=== PATIENT | female | born 1945 | race Caucasian/White ===

== ENCOUNTER 2016-08-24 11:05 | Outpatient (CLI) | payer MEDICARE | END 2016-08-24 11:06 | disposition home or self-care (01) | DX: E11.9 Type 2 diabetes mellitus without complications (principal); E78.5 Hyperlipidemia, unspecified; I10 Essential (primary) hypertension ==

== ENCOUNTER 2016-10-01 15:11 | Outpatient (CLI) | payer MEDICARE ==
[2016-10-01 18:11] LABS: BASOPHILS % (AUTO) 0.4 %; EOSINOPHILS # (AUTO) 0.6 10^3/uL (0.0-0.7); EOSINOPHILS % (AUTO) 5.5 %; HCT - HEMATOCRIT 40.3 % (37.0-47.0); HGB - HEMOGLOBIN 13.2 g/dL (12.0-16.0); LYMPHOCYTES # (AUTO) 3.4 10^3/uL (1.5-3.5); LYMPHOCYTES % (AUTO) 30.4 %; MEAN CORPUSCULAR HEMOGLOBIN 27.4 pg (27.0-31.0); MEAN CORPUSCULAR HGB CONC 32.7 g/dL (32.0-36.0); MEAN CORPUSCULAR VOLUME 83.7 fL (81.0-99.0); MEAN PLATELET VOLUME 9.4 fL (7.9-10.8); MONOCYTES # (AUTO) 0.9 10^3/uL (0.0-1.0); MONOCYTES % (AUTO) 8.5 %; NEUTROPHILS # (AUTO) 6.1 10^3/uL (1.5-6.6); NEUTROPHILS % (AUTO) 55.2 %; RED BLOOD COUNT 4.81 10^6/uL (4.20-5.40); RED CELL DISTRIBUTION WIDTH 14.4 % (12.0-15.0); UNCORRECTED WHITE BLOOD COUNT 11.1 x10^3/uL; WHITE BLOOD COUNT 11.1 x10^3/uL (4.8-10.8)
== END 2016-10-01 15:12 | disposition home or self-care (01) ==
LOC: LAB.F 15:11
PROVIDERS: ATTEND Family Medicine
DX: E55.9 Vitamin D deficiency, unspecified (principal); R53.83 Other fatigue; E11.9 Type 2 diabetes mellitus without complications; E78.5 Hyperlipidemia, unspecified; I10 Essential (primary) hypertension
CPT/HCPCS: 36415; 82306; 82607; 83735; 85025

== ENCOUNTER 2016-11-12 10:55 | Outpatient (CLI) | payer MEDICARE | END 2016-11-12 10:56 | disposition home or self-care (01) | LOC: NS 10:55 | PROVIDERS: ATTEND Family Medicine | DX: Z71.3 Dietary counseling and surveillance (principal); E11.9 Type 2 diabetes mellitus without complications; Z68.30 Body mass index [BMI] 30.0-30.9, adult | CPT/HCPCS: 97802 ==

== ENCOUNTER 2017-04-29 11:14 | Outpatient (CLI) | payer MEDICARE ==
[2017-04-29 17:57] LABS: ALBUMIN/GLOBULIN RATIO 1.8 (1.0-2.2); BILIRUBIN,TOTAL 0.7 mg/dL (0.2-1.0); BUN - BLOOD UREA NITROGEN 28 mg/dL (6-20); CALCIUM 9.5 mg/dL (8.5-10.3); CARBON DIOXIDE - CO2 26 mmol/L (21-32); CHLORIDE 100 mmol/L (101-111); CHOL/HDL RATIO 3.2 (<4.4); CHOLESTEROL 138 mg/dL; GFR - MDRD 54 (>89); GLUCOSE 123 mg/dL (70-100); HDL CHOLESTEROL 43 mg/dL; LDL/HDL RATIO 1.2 (<4.4); POTASSIUM 4.1 mmol/L (3.5-5.0); SODIUM 136 mmol/L (135-145); TOTAL PROTEIN 6.9 g/dL (6.7-8.2); TRIGLYCERIDES 213 mg/dL; VLDL CHOLESTEROL 43 mg/dL
[2017-04-29 18:06] LABS: HEMOGLOBIN A1C 0.55 g/dL
== END 2017-04-29 11:15 | disposition home or self-care (01) ==
LOC: LAB.F 11:14
PROVIDERS: ATTEND Family Medicine
DX: E11.9 Type 2 diabetes mellitus without complications (principal); E78.5 Hyperlipidemia, unspecified; I10 Essential (primary) hypertension; E55.9 Vitamin D deficiency, unspecified
CPT/HCPCS: 36415; 80053; 80061; 82043; 82306; 83036

== ENCOUNTER 2017-07-09 11:57 | Outpatient (CLI) | payer MEDICARE ==
[2017-07-09 12:29] LABS: CREATININE 1.1 mg/dL (0.4-1.0)
[2017-07-09] MEDS ORDERED: GADOBUTROL 7.5 MMOL/7.5 ML VIAL ONE (12:48)
[2017-07-09] MEDS ORDERED: GADOBUTROL 7.5 MMOL/7.5 ML VIAL IVP ONE (13:30)
--- NOTE | 2017-07-09 15:09 | MRI Report ---
EXAM: MRI BRAIN AND INTERNAL AUDITORY CANAL (IAC),WITHOUT AND WITH CONTRAST. EXAM DATE: 07/09/2017 01:57 PM. CLINICAL HISTORY: Dizziness. Sensorineural hearing loss bilaterally. COMPARISON: None. TECHNIQUE: Multiplanar, multisequence T1-weighted and fluid-sensitive MRI sequences of the brain and IACs were performed. Other: None. IV Contrast: Without an with 6.5 mm Gadavist. FINDINGS: Brain Volume: Normal for age. Parenchyma/Dura: No acute hemorrhage, mass, or acute infarct.White matter disease is mild and consist ent with aging and chronic microangiopathy. No abnormal enhancement. Internal Auditory Canals (IACs): Normal. No cranial nerve lesion or inflammatory process identified. The inner ear structure are symmetric and unremarkable. Ventricles/Cisterns: No hydrocephalus. No abnormal extra-axial fluid collection or hemorrhage. Sinuses: Moderately prominent patchy and confluent abnormal fluid opacity in the region of the right temporal bone, mastoids and possibly the middle ear cavity. Minimal amorphous left inferior mastoid f luid signal may also be present. No evidence for acute paranasal sinus disease. Bones: No focal pathologic appearing marrow signal changes in the skull or clivus. Other: The major arterial skull base flow voids are present. IMPRESSION: 1. No acute intracranial abnormality or enhancing mass. Mild chronic age-related changes. 2. Unremarkable findings in the regions of the internal auditory canals and cerebellopontine angle ci sterns. No evidence for vestibular schwannoma or other enhancing mass in this region. 3. Patchy and confluent abnormal right temporal bone airspace opacities raising the possibility of ri ght side otomastoiditis. [facility] Referring Provider Line: [phone] SITE ID: [id number]
== END 2017-07-09 11:58 | disposition home or self-care (01) ==
LOC: LAB 11:57
PROVIDERS: ATTEND Otolaryngology
DX: H90.42 Sensorineural hearing loss, unilateral, left ear, with unrestricted hearing on the contralateral side (principal); R42 Dizziness and giddiness
CPT/HCPCS: 36415; 70543; 82565; A9585

== ENCOUNTER 2017-08-02 11:08 | Outpatient (CLI) | payer MEDICARE ==
[2017-08-02 20:23] LABS: HB2 TOTAL 13.7 g/dL; HEMOGLOBIN A1C 0.69 g/dL; HEMOGLOBIN A1C % 6.8 % (4.6-6.2)
== END 2017-08-02 11:09 | disposition home or self-care (01) ==
LOC: LAB.F 11:08
PROVIDERS: ATTEND Family Medicine
DX: E55.9 Vitamin D deficiency, unspecified (principal); E11.9 Type 2 diabetes mellitus without complications; E78.5 Hyperlipidemia, unspecified; I10 Essential (primary) hypertension
CPT/HCPCS: 36415; 82306; 83036

== ENCOUNTER 2017-11-01 11:05 | Outpatient (CLI) | payer MEDICARE ==
[2017-11-01 18:38] LABS: CALCIUM 9.4 mg/dL (8.5-10.3); CREATININE 0.8 mg/dL (0.4-1.0)
[2017-11-01 19:09] LABS: HB2 TOTAL 13.5 g/dL; HEMOGLOBIN A1C 0.59 g/dL; HEMOGLOBIN A1C % 6.1 % (4.6-6.2)
== END 2017-11-01 11:06 | disposition home or self-care (01) ==
LOC: LAB.F 11:05
PROVIDERS: ATTEND Family Medicine
DX: R42 Dizziness and giddiness (principal); E11.9 Type 2 diabetes mellitus without complications; I10 Essential (primary) hypertension
CPT/HCPCS: 36415; 80048; 83036

== ENCOUNTER 2018-02-14 08:00 | Outpatient (CLI) | payer MEDICARE ==
[2018-02-14 18:40] LABS: BUN - BLOOD UREA NITROGEN 27 mg/dL (6-20); CALCIUM 8.8 mg/dL (8.5-10.3); CARBON DIOXIDE - CO2 22 mmol/L (21-32); CHLORIDE 102 mmol/L (101-111); CHOLESTEROL 140 mg/dL; GFR - MDRD 54 (>89); GLUCOSE 142 mg/dL (70-100); HDL CHOLESTEROL 46 mg/dL; LDL CHOLESTEROL,CALCULATED 51 mg/dL; LDL/HDL RATIO 1.1 (<4.4); SODIUM 135 mmol/L (135-145); VLDL CHOLESTEROL 43 mg/dL
[2018-02-14 19:16] LABS: HB2 TOTAL 12.3 g/dL; HEMOGLOBIN A1C 0.57 g/dL; HEMOGLOBIN A1C % 6.4 % (4.6-6.2)
== END 2018-02-14 08:01 | disposition home or self-care (01) ==
LOC: LAB.F 08:00
PROVIDERS: ATTEND Internal Medicine
DX: E11.9 Type 2 diabetes mellitus without complications (principal); E78.5 Hyperlipidemia, unspecified
CPT/HCPCS: 36415; 80048; 80061; 83036; 83721; 84443

== ENCOUNTER 2018-03-04 10:05 | Outpatient (CLI) | payer MEDICARE ==
--- NOTE | 2018-03-04 13:36 | DEXA Report ---
Reason: ASYMPTOMATIC MENOPAUSAL STATE Procedure Date: 03/04/2018 Accession Number: [id number] / [id number] Procedure: DEX - Dexa Spine and/or Hip CPT Code: FULL RESULT: EXAM: Dexa Spine and/or Hip DATE: 03/04/2018 10:37 AM CLINICAL HISTORY: ASYMPTOMATIC MENOPAUSAL STATE TECHNIQUE: Dual energy x-ray absorptiometry (DXA) was performed on a [employer] System. Regions measured are the AP Spine, femoral neck, and if needed forearm. COMPARISON: None. In accordance with the International Society for Clinical Densitometry (ISCD) guidelines, data from previous exams may be reanalyzed using current recommendations and techniques. This is done to allow a more accurate basis for comparison with the current study. FINDINGS: The data for the lumbar spine is as follows: BMD (g/cm/cm) T-SCORE Z-SCORE REGION L1 1.429 2.5 3.4 L2 1.496 2.5 3.4 L3 1.553 2.9 3.8 L4 1.672 3.9 4.8 TOTAL 1.551 3.1 4.0 NOTE: All evaluable vertebrae are used for classification The data for the hip is as follows: BMD (g/cm/cm) T-SCORE Z-SCORE REGION Neck 0.905 -1.0 0.4 TOTAL 0.953 -0.4 0.7 NOTE: The femoral neck or total proximal femur, whichever is lowest, is used for classification. IMPRESSION: THE WHO CLASSIFICATION BASED ON THE INTERNATIONAL REFERENCE STANDARD IS NORMAL. THE FRACTURE RISK IS NOT INCREASED. RECOMMENDATION: Patients with diagnosis of osteoporosis or osteopenia should have regular bone mineral density assessment. For those eligible for Medicare, routine testing is allowed once every 2 years. Testing frequency can be increased for patients who have rapidly progressing disease or for those who are receiving medical therapy to restore bone mass. COMMENT: World Health Organization (WHO) definitions for osteoporosis and osteopenia: NORMAL BMD: T-score at -1.0 or higher, fracture risk is low OSTEOPENIA BMD: T-score between -1.0 and -2.5, fracture risk is increased. OSTEOPOROSIS BMD: T-score at -2.5 or lower, fracture risk is high. National Osteoporosis Foundation recommends: 1. Obtain adequate dietary calcium (at least 1200 mg per day) and vitamin D (400-800 international units per day). 2. Participate, as appropriate, in regular weightbearing and muscle-strengthening exercise. 3. Avoid tobacco use and reduce alcohol and caffeine intake. 4. For more detailed information see the website at www.NOF.org.
== END 2018-03-04 10:06 | disposition home or self-care (01) ==
LOC: DI 10:05
PROVIDERS: ATTEND Internal Medicine
DX: Z78.0 Asymptomatic menopausal state (principal)
CPT/HCPCS: 77080

== ENCOUNTER 2018-06-18 17:20 | Outpatient (CLI) | payer MEDICARE | END 2018-06-18 17:21 | disposition home or self-care (01) | LOC: EMS 17:20 | PROVIDERS: ATTEND Surgery | DX: M54.6 Pain in thoracic spine (principal); R07.9 Chest pain, unspecified; R06.02 Shortness of breath | CPT/HCPCS: A0425; A0427 ==

== ENCOUNTER 2018-06-18 17:52 | Emergency (ER) | payer MEDICARE ==
[2018-06-18] MEDS ORDERED: LIDOCAINE VISCOUS 2% 15 ML UDC MM STA (18:11)
[2018-06-18] MEDS ORDERED: MAG HYDROX/AL HYDROX/SIMETH 30 ML UDC PO STA (18:11)
--- NOTE | 2018-06-18 18:13 | ED Physician Documentation ---
PD HPI CHEST PAIN - Stated complaint Stated Complaint: BACK PAIN - Chief complaint Chief Complaint: Back Pain - History obtained from History obtained from: Patient - History of Present Illness Timing - onset: Other (She has had high left flank/low thoracic back pain since yesterday that is just uncomfortable but today with radiation to the left upper quadrant associated with shortness of breath and some sweatiness. It does not change with exertion or deep breathing or rotation. There was no injury. She denies pedal edema or calf pain. She has no heart problems. Except for a known heart murmur.) Review of Systems Constitutional: denies: Fever, Chills Cardiac: denies: Chest pain / pressure, Palpitations Respiratory: reports: Dyspnea. denies: Cough GI: reports: Abdominal Pain (luq), Nausea. 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 HEENT: Cataracts, Tonsil/Adenoidectomy - Present Medications Home Medications: Ambulatory Orders Medication Instructions Recorded Confirmed Acetaminophen [Tylenol] 650 mg PO Q6H PRN 01/04/13 06/18/18 Aspirin [Aspir 81] 81 mg PO DAILY 01/04/13 06/18/18 Felodipine [Felodipine ER] 10 mg PO DAILY 01/04/13 06/18/18 Losartan [Cozaar] 50 mg PO BID 01/04/13 06/18/18 Metformin HCl [Metformin HCl ER] 1,000 mg PO BIDWM 01/04/13 06/18/18 RX: Furosemide 40 mg PO DAILY 01/04/13 06/18/18 Cholecalciferol (Vitamin D3) 2,000 unit PO DAILY 09/25/16 06/18/18 [Vitamin D] Cyanocobalamin (Vitamin B-12) 1,000 mcg PO DAILY 09/25/16 09/25/16 [Vitamin B-12] RX: Atorvastatin Calcium 40 mg PO DAILY 09/25/16 06/18/18 RX: Docusate Sodium 100 - 200 mg PO DAILY PRN 09/25/16 06/18/18 RX: Glimepiride 1 mg PO DAILY 09/25/16 06/18/18 RX: Meloxicam 15 mg PO DAILY 09/25/16 06/18/18 - Allergies Allergies/Adverse Reactions: Allergies Allergy/AdvReac Type Severity Reaction Status Date / Time codeine [Codeine] AdvReac Intermediate Nausea Verified 06/18/18 18:09 - Social History Smoking Status: Never smoker PD ED PE NORMAL - Vitals Vital signs reviewed: Yes - General General: Alert and oriented X 3, No acute distress - HEENT HEENT: PERRL, EOMI - Neck Neck: Supple, no meningeal sign, No bony TTP - Cardiac Cardiac: Other (1 out of 6 systolic decrescendo murmur) - Respiratory Respiratory: No respiratory distress, Clear bilaterally - Abdomen Abdomen: Normal bowel sounds, Soft, Non tender - Back Back: No CVA TTP, No spinal TTP - Derm Derm: Normal color, Warm and dry, No rash - Extremities Extremities: No edema, No calf tenderness / cord - Neuro Neuro: Alert and oriented X 3, Normal speech - Psych Psych: Normal mood, Normal affect Results - Vitals Vitals: Vital Signs - 24 hr 06/18/18 06/18/18 06/18/18 18:00 18:55 20:16 Temperature 36.0 C L 36.9 C Heart Rate 77 79 77 Respiratory 18 18 20 Rate Blood Pressure 144/70 H 147/82 H 148/76 H O2 Saturation 96 94 95 Oxygen O2 Source Room air - EKG (time done) 1818 Rate: Rate (enter#) (72) Rhythm: NSR [place]: Normal Intervals: Normal OK QRS: LVH Ischemia: Normal ST segments Computer interpretation: Agree with computer - Labs Labs: Laboratory Tests 06/18/18 06/18/18 06/18/18 18:37 18:37 18:37 WBC 8.9 RBC 4.02 L Hgb 11.0 L Hct 33.9 L MCV 84.3 MCH 27.5 MCHC 32.6 RDW 15.5 H Plt Count 337 MPV 8.5 Neut # (Auto) 5.6 Lymph # (Auto) 1.9 [place] # (Auto) 1.1 H Eos # (Auto) 0.3 Baso # (Auto) 0.1 Absolute Nucleated RBC 0.00 Nucleated RBC % 0.0 D-Dimer Sodium 138 Potassium 3.7 Chloride 105 Carbon Dioxide 22 Anion Gap 11.0 BUN 25 H Creatinine 1.0 Estimated GFR (MDRD) 54 L Glucose 181 H Calcium 8.3 L Total Bilirubin 0.4 AST 25 ALT 20 Alkaline Phosphatase 48 Troponin I < 0.04 Total Protein 6.7 Albumin 3.9 Globulin 2.8 Albumin/Globulin Ratio 1.4 Lipase 42 06/18/18 06/18/18 18:37 19:45 WBC RBC Hgb Hct MCV MCH MCHC RDW Plt Count MPV Neut # (Auto) Lymph # (Auto) [place] # (Auto) Eos # (Auto) Baso # (Auto) Absolute Nucleated RBC Nucleated RBC % D-Dimer 211.4 Sodium Potassium Chloride Carbon Dioxide Anion Gap BUN Creatinine Estimated GFR (MDRD) Glucose Calcium Total Bilirubin AST ALT Alkaline Phosphatase Troponin I < 0.04 Total Protein Albumin Globulin Albumin/Globulin Ratio Lipase PD MEDICAL DECISION MAKING - ED course ED course: She has had atypical chest and back pain of a days duration. She is not in extremis a dissection is unlikely and her d-dimer is negative. Serial troponins done in the department were negative. Departure - Departure Disposition: 01 Home, Self Care Clinical Impression: Back pain Condition: Good Record reviewed to determine appropriate education?: Yes Instructions: ED Abdominal Pain Unkn Cause Comments: Return for new or worsening symptoms. There is no evidence of heart issue tonight but we would like to see you again if symptoms change or worsen. Follow-up with your doctor and consider stress testing. Discharge Date/Time: 06/18/18 20:38
[2018-06-18 18:54] LABS: BASOPHILS # (AUTO) 0.1 10^3/uL (0.0-0.1); BASOPHILS % (AUTO) 1.2 %; EOSINOPHILS # (AUTO) 0.3 10^3/uL (0.0-0.7); EOSINOPHILS % (AUTO) 2.9 %; LYMPHOCYTES # (AUTO) 1.9 10^3/uL (1.5-3.5); LYMPHOCYTES % (AUTO) 21.1 %; MEAN CORPUSCULAR HEMOGLOBIN 27.5 pg (27.0-31.0); MEAN CORPUSCULAR HGB CONC 32.6 g/dL (32.0-36.0); MEAN CORPUSCULAR VOLUME 84.3 fL (81.0-99.0); MEAN PLATELET VOLUME 8.5 fL (7.9-10.8); MONOCYTES # (AUTO) 1.1 10^3/uL (0.0-1.0); MONOCYTES % (AUTO) 11.9 %; NEUTROPHILS # (AUTO) 5.6 10^3/uL (1.5-6.6); NEUTROPHILS % (AUTO) 62.9 %; PLT - PLATELET COUNT 337 10^3/uL (130-450); RED BLOOD COUNT 4.02 10^6/uL (4.20-5.40); RED CELL DISTRIBUTION WIDTH 15.5 % (12.0-15.0); WHITE BLOOD COUNT 8.9 x10^3/uL (4.8-10.8)
--- NOTE | 2018-06-18 19:05 | XRAY Report ---
Reason: chest pain Procedure Date: 06/18/2018 Accession Number: [id number] / [id number] Procedure: XR - Chest 2 View X-Ray CPT Code: 53928 FULL RESULT: EXAM: CHEST RADIOGRAPHY EXAM DATE: 06/18/2018 06:53 PM. CLINICAL HISTORY: Left-sided chest pain. COMPARISON: CHEST 2 VIEW PA/LAT 09/27/2013 11:15 AM. TECHNIQUE: 2 views. FINDINGS: Lungs/Pleura: Mild atelectatic changes seen at the left base, with trace effusion. Right lung is grossly clear. Mediastinum: Heart and mediastinal contours are unremarkable. Other: None. IMPRESSION: Mild atelectatic changes at the left base with trace effusion. [facility]
[2018-06-18 19:07] LABS: ALBUMIN 3.9 g/dL (3.2-5.5); ALBUMIN/GLOBULIN RATIO 1.4 (1.0-2.2); BILIRUBIN,TOTAL 0.4 mg/dL (0.2-1.0); CALCIUM 8.3 mg/dL (8.5-10.3); TOTAL PROTEIN 6.7 g/dL (6.7-8.2)
[2018-06-18 20:17] VITALS: BP 148/76
== END 2018-06-18 20:38 | disposition home or self-care (01) ==
LOC: EDUNIT# → ED 17:52
DX: M54.9 Dorsalgia, unspecified (principal); R07.89 Other chest pain; E11.9 Type 2 diabetes mellitus without complications; I10 Essential (primary) hypertension; E78.00 Pure hypercholesterolemia, unspecified
CPT/HCPCS: 36415; 71046; 80053; 83690; 84484; 85025; 85379; 93005; 99283; 99284; A9270

== ENCOUNTER 2018-06-22 08:00 | Outpatient (CLI) | payer MEDICARE ==
[2018-06-22 17:48] LABS: BASOPHILS # (AUTO) 0.1 10^3/uL (0.0-0.1); BASOPHILS % (AUTO) 1.2 %; EOSINOPHILS # (AUTO) 0.3 10^3/uL (0.0-0.7); EOSINOPHILS % (AUTO) 2.5 %; HGB - HEMOGLOBIN 11.2 g/dL (12.0-16.0); LYMPHOCYTES % (AUTO) 28.8 %; MEAN CORPUSCULAR HEMOGLOBIN 27.1 pg (27.0-31.0); MEAN CORPUSCULAR VOLUME 82.2 fL (81.0-99.0); MEAN PLATELET VOLUME 8.6 fL (7.9-10.8); MONOCYTES # (AUTO) 1.4 10^3/uL (0.0-1.0); MONOCYTES % (AUTO) 13.5 %; NEUTROPHILS # (AUTO) 5.7 10^3/uL (1.5-6.6); PLT - PLATELET COUNT 412 10^3/uL (130-450); RED BLOOD COUNT 4.12 10^6/uL (4.20-5.40); RED CELL DISTRIBUTION WIDTH 15.4 % (12.0-15.0); WHITE BLOOD COUNT 10.5 x10^3/uL (4.8-10.8)
== END 2018-06-22 23:59 | disposition home or self-care (01) ==
LOC: LAB.F 08:00
PROVIDERS: ATTEND Otolaryngology Otology & Neurotology
DX: H90.3 Sensorineural hearing loss, bilateral (principal)
CPT/HCPCS: 36415; 85025; 85651

== ENCOUNTER 2018-08-01 11:38 | Outpatient (CLI) | payer MEDICARE ==
[2018-08-01] MEDS ORDERED: GADOBUTROL 10 MMOL/10 ML VIAL ONE (13:11)
[2018-08-01] MEDS ORDERED: GADOBUTROL 7.5 MMOL/7.5 ML VIAL ONE (14:26)
[2018-08-01] MEDS ORDERED: GADOBUTROL 10 MMOL/10 ML VIAL IVP ONE ×2 (14:31)
--- NOTE | 2018-08-01 17:21 | MRI Report ---
Reason: SUDDEN HEARING LOSS,RIGHT Procedure Date: 08/01/2018 Accession Number: [id number] / [id number] Procedure: MRI - Brain W/WO CPT Code: FULL RESULT: EXAM: MRI BRAIN WITHOUT AND WITH CONTRAST EXAM DATE: 08/01/2018 02:44 PM. CLINICAL HISTORY: Sudden hearing loss, right. COMPARISON: Images only were provided from MRI of the IACs without and with contrast 07/09/2017. TECHNIQUE: Multiplanar, multisequence T1-weighted and fluid-sensitive MR sequences of the brain were performed. Sequences optimized for routine evaluation. Other: None. IV Contrast: 9 mL Gadavist. FINDINGS: The diffusion-weighted images are normal. There is no evidence of acute or subacute cerebral infarction. The FLAIR images demonstrate multiple unchanged punctate T2 hyperintensities within the subcortical, deep, and periventricular white matter. This is consistent with a mild degree of chronic small vessel ischemia. The T2* sequence is normal. There is no evidence of subacute or chronic hemorrhage. The corpus callosum is of normal size and configuration. The pituitary and sella are normal. The craniocervical junction is normal. There is fluid intensity again demonstrated within multiple right mastoid air cells. This may reflect changes secondary to chronic eustachian tube dysfunction. There is a normal appearance of the nerve exit zone, cisternal and internal auditory canal segments of the bilateral 7th and 8th cranial nerves. There is a normal appearance of the nerve exit zone and cisternal segments of the bilateral trigeminal nerve and Meckel's cave. There are normal bony caps demonstrated over the bilateral superior semicircular canals. There is no evidence of dehiscence. There is no enhancing cerebellopontine angle mass or internal auditory canal mass. There is an unchanged small area of enhancement demonstrated within the right mastoid segment of the right temporal bone within this area of fluid intensity. It measures 6 x 7 mm on (29, 7447). The differential diagnosis would include an interosseous hemangioma versus a small area of neoplasia versus possibly granulation tissue. Further evaluation with a CT temporal bones without contrast may be useful and can be obtained as seen clinically appropriate. There has been one year of stability of this finding. IMPRESSION: 1. There is no evidence of acute or subacute cerebral infarction. 2. There is mild degree of chronic small vessel ischemia and mild degree of generalized volume loss. 3. There is a normal appearance of the course of the bilateral 7th and 8th cranial nerves. There is no evidence of semicircular canal dehiscence or enhancing internal auditory canal mass. 4. There is an enhancing lesion that is unchanged measuring 6 x 7 mm within the right mastoid segment of the right temporal bone. This is surrounded by an area of fluid intensity. It could represent an intraosseous hemangioma versus small area of neoplasia versus possible granulation tissue. There has been one year of stability of this finding. Further characterization can be obtained with CT of the temporal bones without contrast as deemed clinically appropriate.
== END 2018-08-01 11:39 | disposition home or self-care (01) ==
LOC: LAB 11:38 → DI 11:39
PROVIDERS: ATTEND Internal Medicine
DX: H91.21 Sudden idiopathic hearing loss, right ear (principal); I67.82 Cerebral ischemia; M89.9 Disorder of bone, unspecified
CPT/HCPCS: 36415; 70553; 82565; A9585

== ENCOUNTER 2018-08-31 15:03 | Outpatient (CLI) | payer MEDICARE ==
--- NOTE | 2018-09-01 08:36 | Mammography Report ---
Reason: SCREENING MAMMO Procedure Date: 08/31/2018 Accession Number: [id number] / [id number] Procedure: [facility]I - Screening Mammo w/Frank CPT Code: FULL RESULT: EXAM: Screening Mammo w/Frank DATE: 08/31/2018 3:35 PM CLINICAL HISTORY: Screening encounter. 10 years of estrogen therapy. TECHNIQUE: (B) - Bilateral CC and MLO views were obtained. A right laterally exaggerated CC view was obtained. COMPARISON: 04/20/2016 through 05/19/2013. PARENCHYMAL PATTERN: (D) - The breast(s) demonstrate(s) heterogeneously dense fibroglandular parenchyma. FINDINGS: There are coarse typically benign calcifications. There are no suspicious masses, calcifications, or areas of distortion. IMPRESSION: Benign findings. BI-RADS category 2. RECOMMENDATION: (ANNUAL) - Recommend routine annual screening mammography. BI-RADS CATEGORY: (2) - Benign Findings. STANDARD QUALIFYING STATEMENTS: 1. This examination was not reviewed with the aid of Computer-Aided Detection (CAD). 2. A negative or benign imaging report should not preclude biopsy if clinically suspicious findings are present. 3. Dense breasts may obscure an underlying neoplasm. 4. This examination was reviewed with the aid of 3D breast imaging (tomosynthesis).
== END 2018-08-31 15:04 | disposition home or self-care (01) ==
LOC: DI 15:03
DX: Z12.31 Encounter for screening mammogram for malignant neoplasm of breast (principal)
CPT/HCPCS: 77063; 77067

== ENCOUNTER 2018-09-13 11:06 | Outpatient (CLI) | payer MEDICARE ==
[2018-09-13 17:43] LABS: CREATININE 0.9 mg/dL (0.4-1.0)
[2018-09-13 18:10] LABS: HB2 TOTAL 11.9 g/dL; HEMOGLOBIN A1C 0.58 g/dL; HEMOGLOBIN A1C % 6.6 % (4.6-6.2)
== END 2018-09-13 11:07 | disposition home or self-care (01) ==
LOC: LAB.F 11:06
PROVIDERS: ATTEND Internal Medicine
DX: E11.9 Type 2 diabetes mellitus without complications (principal); R10.12 Left upper quadrant pain; M54.6 Pain in thoracic spine
CPT/HCPCS: 36415; 80048; 82043; 82150; 83036

== ENCOUNTER 2018-11-07 21:01 | Outpatient (CLI) | payer MEDICARE | END 2018-11-07 21:02 | disposition critical access hospital (66) | LOC: EMS 21:01 | PROVIDERS: ATTEND Surgery | DX: M25.511 Pain in right shoulder (principal); M79.621 Pain in right upper arm; W10.8XXA Fall (on) (from) other stairs and steps, initial encounter; Y92.008 Other place in unspecified non-institutional (private) residence as the place of occurrence of the external cause | CPT/HCPCS: A0425; A0427 ==

== ENCOUNTER 2018-11-07 21:29 | Emergency (ER) | payer MEDICARE ==
--- NOTE | 2018-11-07 21:40 | ED Physician Documentation ---
PD HPI UPPER EXT INJURY - Stated complaint Stated Complaint: GLF - History obtained from History obtained from: Patient - History of Present Illness Location: Right, Shoulder Type of injury: Fall (she was walking out on deck steps and tripped, falling onto right shoulder. Denies injury to head, neck, chest, abd.) Where injury occurred: Home Timing - onset: How many hours ago (1), Today Timing - duration: Hours (1) Timing - details: Abrupt onset, Still present Worsened by: Moving, Palpating Associated symptoms: No: Weakness, Numbness Contributing factors: No: Anticoagulated Similar symptoms before: Has not had sx before Recently seen: Not recently seen Review of Systems Cardiac: denies: Chest pain / pressure GI: denies: Abdominal Pain Skin: denies: Abrasion (s), Laceration (s) Musculoskeletal: denies: Neck pain, Back pain Neurologic: denies: Focal weakness, Numbness, Altered mental status, Head injury PD PAST MEDICAL HISTORY - Past Medical History Cardiovascular: Hypertension, High cholesterol Respiratory: None Endocrine/Autoimmune: Type 2 diabetes GI: None : None HEENT: Chronic hearing loss Psych: Depression Musculoskeletal: Osteoarthritis, Chronic back pain Derm: None - Past Surgical History Past Surgical History: Yes General: Colonoscopy 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 HEENT: Cataracts, Tonsil/Adenoidectomy - Present Medications Home Medications: Ambulatory Orders Medication Instructions Recorded Confirmed Acetaminophen [Tylenol] 650 mg PO Q6H PRN 01/04/13 06/18/18 Aspirin [Aspir 81] 81 mg PO DAILY 01/04/13 06/18/18 Felodipine [Felodipine ER] 10 mg PO DAILY 01/04/13 06/18/18 Furosemide 40 mg PO DAILY 01/04/13 06/18/18 Losartan [Cozaar] 50 mg PO BID 01/04/13 06/18/18 Metformin HCl [Metformin HCl ER] 1,000 mg PO BIDWM 01/04/13 06/18/18 Atorvastatin Calcium 40 mg PO DAILY 09/25/16 06/18/18 Cholecalciferol (Vitamin D3) 2,000 unit PO DAILY 09/25/16 06/18/18 [Vitamin D] Cyanocobalamin (Vitamin B-12) 1,000 mcg PO DAILY 09/25/16 09/25/16 [Vitamin B-12] Docusate Sodium 100 - 200 mg PO DAILY PRN 09/25/16 06/18/18 Glimepiride 1 mg PO DAILY 09/25/16 06/18/18 Meloxicam 15 mg PO DAILY 09/25/16 06/18/18 Naproxen 500 mg PO BID #20 tablet 11/07/18 Tramadol HCl 50 mg PO Q6H PRN #15 tablet 11/07/18 - Allergies Allergies/Adverse Reactions: Allergies Allergy/AdvReac Type Severity Reaction Status Date / Time codeine [Codeine] AdvReac Intermediate Nausea Verified 11/07/18 21:39 - Social History Does the pt smoke?: No Smoking Status: Never smoker Does the pt drink ETOH?: No Does the pt have substance abuse?: No PD ED PE NORMAL - Vitals Vital signs reviewed: Yes - General General: Alert and oriented X 3, Well developed/nourished, Other (holding right shoulder/arm guardedly to side. Seems defect under AC area c/w dislocation. ) - Neck Neck: Supple, no meningeal sign, No bony TTP, No adenopathy - Respiratory Respiratory: Clear bilaterally, Other (no chestwall tenderness) - Abdomen Abdomen: Soft, Non tender - Derm Derm: Normal color, Warm and dry - Extremities Extremities: Other (right shoulder tender and deformity c/w dislocation. ) - Neuro Neuro: Alert and oriented X 3, No motor deficit, No sensory deficit, Normal speech Results - Vitals Vitals: Vital Signs - 24 hr 11/07/18 11/07/18 11/07/18 21:37 22:30 22:46 Temperature 36.7 C 36.5 C Heart Rate 72 73 71 Respiratory 14 14 12 Rate Blood Pressure 170/75 H 159/79 H 155/90 H O2 Saturation 94 96 94 11/07/18 11/07/18 11/07/18 22:50 22:57 23:01 Temperature Heart Rate 76 71 67 Respiratory 16 15 17 Rate Blood Pressure 136/75 H 144/81 H O2 Saturation 96 92 11/07/18 23:33 Temperature Heart Rate 72 Respiratory 15 Rate Blood Pressure 159/76 H O2 Saturation 97 Oxygen O2 Source Room air - Rads (name of study) right shoulder Radiology: Prelim report reviewed (anterior dislocation with Hill Sachs impaction), EMP read contemporaneously, See rad report post reduction Radiology: Prelim report reviewed, EMP read contemporaneously (improved location), See rad report Procedures - Reduction Body part reduced: Right, Shoulder Fracture or dislocation: Dislocation Anesthesia: Conscious sedation, Morphine Shoulder reduction technique: [place] / ext rotation Reduction aftercare: NV intact, Xray confirms reduction, Alignment improved, Sling, Patient tolerated well PD MEDICAL DECISION MAKING - ED course Complexity details: considered differential (given IV med for pain but not able to tolerate manipulation due to pain, so discussed and did sedation for the procedure. Tolerated well with good reduction. ), d/w patient Departure - Departure Disposition: 01 Home, Self Care Clinical Impression: Fall from slip, trip, or stumble Qualifiers: Encounter type: initial encounter Qualified Code(s): W01.0XXA - Fall on same level from slipping, tripping and stumbling without subsequent striking against object, initial encounter Anterior shoulder dislocation Qualifiers: Encounter type: initial encounter Laterality: right Qualified Code(s): S43.014A - Anterior dislocation of right humerus, initial encounter Condition: Stable Record reviewed to determine appropriate education?: Yes Instructions: ED Dislocation Shoulder Redu Follow-Up: Golden Tamez MD [Primary Care Provider] - Lance Owens MD [Provider Admit Priv/Credential] - Prescriptions: Naproxen 500 mg PO BID #20 tablet Tramadol HCl 50 mg PO Q6H PRN #15 tablet PRN Reason: Pain Comments: Use a sling to protect shoulder motion and allow healing of the shoulder ligaments. You would have to tear some of the shoulder ligaments and tendons in order to dislocate the shoulder and these need time to heal. Gentle range of motion of the shoulder is okay. In particular no reaching overhead, push pole, lifting with the arm. Wear the sling most of the time. Follow-up with orthopedics in about a week to see how well it is healing. Sometimes the rotator cuff does not heal adequately and needs subsequent fixing. The shoulder will be sore of course for the next few days at least in commonly about a week or 2. He has some anti-inflammatories such as naproxen or ibuprofen twice daily with food. Add Tylenol or even tramadol if needed for pain. Discharge Date/Time: 11/07/18 23:44
[2018-11-07] MEDS ORDERED: MORPHINE 10 MG/ML VIAL IVP STA (21:53)
[2018-11-07] MEDS ORDERED: ONDANSETRON 4 MG/2 ML VIAL IVP STA (21:53)
[2018-11-07] MEDS ORDERED: KETOROLAC 30 MG/ML VIAL IVP STA (21:53)
[2018-11-07] MEDS ORDERED: MORPHINE 2 MG/ML CARPUJECT IVP STA (22:22)
[2018-11-07] MEDS ORDERED: PROPOFOL 200 MG/20 ML VIAL IVP STA (22:22)
--- NOTE | 2018-11-07 22:59 | XRAY Report ---
Reason: fall, pain Procedure Date: 11/07/2018 Accession Number: [id number] / [id number] Procedure: XR - Humerus RT CPT Code: FULL RESULT: EXAM: RIGHT HUMERUS RADIOGRAPHY EXAM DATE: 11/07/2018 10:23 PM. CLINICAL HISTORY: Fall, pain. COMPARISON: - - - - - 04/06/2017 10:55 AM. TECHNIQUE: 2 views. FINDINGS: Bones: Normal. No fractures or bone lesions. Joints: Anterior shoulder dislocation. Degenerative changes of the acromioclavicular joint. Soft Tissues: Normal. No soft tissue swelling. IMPRESSION: Anterior shoulder dislocation. [facility]
--- NOTE | 2018-11-07 23:28 | XRAY Report ---
Reason: post reduction Procedure Date: 11/07/2018 Accession Number: [id number] / [id number] Procedure: XR - Shoulder 2 View RT CPT Code: FULL RESULT: EXAM: RIGHT SHOULDER RADIOGRAPHY EXAM DATE: 11/07/2018 10:58 PM. CLINICAL HISTORY: Post reduction. COMPARISON: None. TECHNIQUE: 2 views. FINDINGS: Bones: Hill-Sachs deformity in the lateral humeral head, with small adjacent osseous fragments. Joints: Degenerative changes. Soft tissues: The visualized hemithorax is unremarkable. No soft tissue swelling. IMPRESSION: Hill-Sachs fracture of the humeral head. Reduction of dislocation. [facility]
[2018-11-07 23:34] VITALS: BP 159/76
== END 2018-11-07 23:44 | disposition home or self-care (01) ==
LOC: EDUNIT# → ED 21:29
DX: S43.014A Anterior dislocation of right humerus, initial encounter (principal); S51.011A Laceration without foreign body of right elbow, initial encounter; W10.8XXA Fall (on) (from) other stairs and steps, initial encounter; Y93.01 Activity, walking, marching and hiking; Y92.008 Other place in unspecified non-institutional (private) residence as the place of occurrence of the external cause; I10 Essential (primary) hypertension; E11.9 Type 2 diabetes mellitus without complications; Z79.84 Long term (current) use of oral hypoglycemic drugs; Z79.82 Long term (current) use of aspirin
CPT/HCPCS: 23650; 94770; 96374; 96375; 99283; 99284

== ENCOUNTER 2018-11-18 13:17 | Outpatient (CLI) | payer MEDICARE ==
--- NOTE | 2018-11-18 15:05 | MRI Report ---
Reason: ANTERIOR DISLOCATION OF RIGHT HUMERUS,INITIAL ENCO Procedure Date: 11/18/2018 Accession Number: [id number] / [id number] Procedure: MRI - Upper Arm/Humerus RT W/O CPT Code: FULL RESULT: EXAM: RIGHT SHOULDER MRI WITHOUT CONTRAST EXAM DATE: 11/18/2018 02:45 PM. CLINICAL HISTORY: Anterior dislocation of right humerus, initial encounter. COMPARISON: Radiographs 11/07/2018. TECHNIQUE: Multiplanar, multisequence T1-weighted and fluid-sensitive sequences of the shoulder without contrast. Other: None. FINDINGS: Evaluation mildly limited by patient motion and artifact. Acromioclavicular Region: The acromion is type II with mild anterior downsloping. Moderate degenerative change at the acromioclavicular joint with subchondral cysts, bone marrow edema, and inferiorly directed osteophytes. The coracoacromial and coracoclavicular ligaments are intact. Moderate subacromial/subdeltoid bursal fluid. Glenohumeral Region: Minimal superior subluxation of the humeral head. Moderate joint effusion. Diffuse shallow partial-thickness cartilage loss. Edema and distortion of the anterior joint capsule including anterior inferior glenohumeral ligament. Bone Marrow: Mild impaction fracture posterolateral aspect humeral head involving a region measuring 1.9 cm AP by 1.9 cm craniocaudal and at least 0.4 cm in depth. Subtle bone marrow edema at the anterior inferior glenoid. Evaluation for subtle ossific fragment limited on MRI. Labrum: Limited evaluation due to motion and artifact. Degenerative fraying throughout. Deep partial to full-thickness tear anterior inferior aspect with subtle curvilinear displaced fragments extending inferiorly. Musculature/Rotator Cuff: Moderate supraspinatus tendinopathy with full-thickness partial-width tear distal aspect anterior and central fibers measuring 0.9 x 1.0 cm, AP by transverse. Deep partial-thickness articular surface tearing extends into the posterior fibers measuring 3 cm transverse. Mild infraspinatus tendinopathy with subtle shallow partial thickness intrasubstance tearing at the posterior insertion. Teres minor tendon intact. Moderate subscapularis tendinopathy with full-thickness partial width tear through the superior third of the fibers. Defect measures approximately 0.7 cm craniocaudal. Mild fatty streaking supraspinatus and subscapularis muscles with edema. Mild edema along the deep aspect deltoid muscle. Biceps Tendon: Moderate biceps tendinopathy with medial dislocation from the superior aspect of the groove and into the subscapularis tear. Likely intrasubstance tearing at the junction of the intra-articular and extra-articular portions. Other: The subcutaneous tissues are unremarkable. IMPRESSION: 1. Impaction fracture posterolateral humeral head and bone contusion versus subtle impaction fracture anterior-inferior glenoid, consistent with anterior dislocation injury. 2. Deep partial to full-thickness tear anterior inferior labrum with displaced labral fragments. 3. Full-thickness partial width tear supraspinatus tendon. Deep partial thickness articular surface tear extends into the posterior fibers. 4. Mild infraspinatus tendinopathy with subtle shallow intrasubstance tearing. 5. Full-thickness partial width tear subscapularis tendon. 6. Moderate biceps tendinopathy and intrasubstance tearing with medial dislocation from the groove and into the region of subscapularis tear. 7. Moderate glenohumeral joint effusion. 8. Moderate subacromial subdeltoid bursitis. 9. Moderate acromioclavicular degenerative change. RADIA
== END 2018-11-18 13:18 | disposition home or self-care (01) ==
LOC: DI 13:17
PROVIDERS: ATTEND Orthopaedic Surgery Sports Medicine
DX: S43.014A Anterior dislocation of right humerus, initial encounter (principal); M75.101 Unspecified rotator cuff tear or rupture of right shoulder, not specified as traumatic; S43.491A Other sprain of right shoulder joint, initial encounter; M25.411 Effusion, right shoulder; M19.011 Primary osteoarthritis, right shoulder; M75.51 Bursitis of right shoulder; M75.81 Other shoulder lesions, right shoulder

== ENCOUNTER 2018-12-22 | Outpatient (CLI) | payer MEDICARE | END 2018-12-22 11:35 | disposition home or self-care (01) | DX: E78.5 Hyperlipidemia, unspecified (principal); E11.9 Type 2 diabetes mellitus without complications; I10 Essential (primary) hypertension; F41.8 Other specified anxiety disorders | CPT/HCPCS: 36415; 80053; 80061; 83036; 83721; 84443; 85025 ==

== ENCOUNTER 2019-03-02 12:25 | Outpatient (CLI) | payer MEDICARE ==
--- NOTE | 2019-03-03 16:20 | XRAY Report ---
Reason: MIDBACK/MIDLINE PAIN,TTP Procedure Date: 03/02/2019 Accession Number: [id number] / [id number] Procedure: XR - Thoracic Spine 2 View CPT Code: FULL RESULT: EXAM: THORACIC SPINE RADIOGRAPHY EXAM DATE: 03/02/2019 12:38 PM. CLINICAL HISTORY: MIDBACK/MIDLINE PAIN,TTP. COMPARISON: None. TECHNIQUE: 2 views. FINDINGS: Alignment: Dextroscoliosis lower T-spine. Bones: No fractures or bone lesions. Disks: Scattered osteophytes diffusely. Soft Tissues: Normal. The visualized lungs and cardiomediastinal silhouette are normal. IMPRESSION: Mild DJD RADIA
== END 2019-03-02 12:26 | disposition home or self-care (01) ==
LOC: DI 12:25
PROVIDERS: ATTEND Family Medicine
DX: M47.814 Spondylosis without myelopathy or radiculopathy, thoracic region (principal)
CPT/HCPCS: 72070

== ENCOUNTER 2019-04-18 12:19 | Outpatient (CLI) | payer MEDICARE ==
[2019-04-18 17:10] LABS: BASOPHILS # (AUTO) 0.1 10^3/uL (0.0-0.1); BASOPHILS % (AUTO) 1.7 %; EOSINOPHILS # (AUTO) 0.6 10^3/uL (0.0-0.7); EOSINOPHILS % (AUTO) 6.6 %; HGB - HEMOGLOBIN 10.2 g/dL (12.0-16.0); LYMPHOCYTES # (AUTO) 2.3 10^3/uL (1.5-3.5); LYMPHOCYTES % (AUTO) 27.8 %; MEAN CORPUSCULAR HEMOGLOBIN 26.2 pg (27.0-31.0); MEAN CORPUSCULAR HGB CONC 31.7 g/dL (32.0-36.0); MEAN CORPUSCULAR VOLUME 82.6 fL (81.0-99.0); MEAN PLATELET VOLUME 10.7 fL (7.9-10.8); MONOCYTES # (AUTO) 0.7 10^3/uL (0.0-1.0); MONOCYTES % (AUTO) 8.6 %; NEUTROPHILS # (AUTO) 4.6 10^3/uL (1.5-6.6); NEUTROPHILS % (AUTO) 54.8 %; PLT - PLATELET COUNT 433 10^3/uL (130-450); RED CELL DISTRIBUTION WIDTH 13.8 % (12.0-15.0); WHITE BLOOD COUNT 8.4 x10^3/uL (4.8-10.8)
[2019-04-18 17:25] LABS: ALBUMIN 4.6 g/dL (3.2-5.5); ALBUMIN/GLOBULIN RATIO 1.6 (1.0-2.2); BILIRUBIN,TOTAL 0.6 mg/dL (0.2-1.0); CALCIUM 8.9 mg/dL (8.5-10.3); CREATININE 1.1 mg/dL (0.4-1.0); CRP HIGH SENSITIVITY 4.2 mg/L; TOTAL PROTEIN 7.5 g/dL (6.7-8.2)
[2019-04-18 17:32] LABS: HEMOGLOBIN A1C 0.52 g/dL; HEMOGLOBIN A1C % 6.9 % (4.6-6.2)
[2019-04-18 17:43] LABS: THYROID STIMULATING HORMONE 2.66 uIU/mL (0.34-5.60)
[2019-04-18 17:45] LABS: FREE T4 (FREE THYROXINE) 1.09 ng/dL (0.58-1.64)
[2019-04-18 17:50] LABS: FERRITIN 7.9 ng/mL (11.0-306.8); TOTAL T3 0.86 ng/mL (0.87-1.78)
[2019-04-19 11:22] LABS: HOMOCYSTEINE 13.6 umol/L (<10.4)
== END 2019-04-18 23:59 | disposition home or self-care (01) ==
LOC: LAB.S 12:19
PROVIDERS: ATTEND Family Medicine
DX: D64.9 Anemia, unspecified (principal); E55.9 Vitamin D deficiency, unspecified; R53.83 Other fatigue; E11.22 Type 2 diabetes mellitus with diabetic chronic kidney disease; N18.9 Chronic kidney disease, unspecified; D63.8 Anemia in other chronic diseases classified elsewhere; E03.9 Hypothyroidism, unspecified; M19.90 Unspecified osteoarthritis, unspecified site
CPT/HCPCS: 36415; 80053; 82306; 82626; 82728; 83036; 83090; 84439; 84443; 84480; 84481; 85025; 86141

== ENCOUNTER 2019-05-02 08:00 | Outpatient (CLI) | payer MEDICARE ==
[2019-05-02 17:15] LABS: BASOPHILS # (AUTO) 0.1 10^3/uL (0.0-0.1); BASOPHILS % (AUTO) 1.2 %; EOSINOPHILS # (AUTO) 0.4 10^3/uL (0.0-0.7); EOSINOPHILS % (AUTO) 3.8 %; HGB - HEMOGLOBIN 10.7 g/dL (12.0-16.0); LYMPHOCYTES # (AUTO) 2.9 10^3/uL (1.5-3.5); LYMPHOCYTES % (AUTO) 28.4 %; MEAN CORPUSCULAR HEMOGLOBIN 25.4 pg (27.0-31.0); MEAN CORPUSCULAR HGB CONC 30.6 g/dL (32.0-36.0); MEAN CORPUSCULAR VOLUME 82.9 fL (81.0-99.0); MEAN PLATELET VOLUME 10.8 fL (7.9-10.8); MONOCYTES % (AUTO) 9.8 %; NEUTROPHILS # (AUTO) 5.7 10^3/uL (1.5-6.6); NEUTROPHILS % (AUTO) 56.4 %; PLT - PLATELET COUNT 483 10^3/uL (130-450); RED BLOOD COUNT 4.22 10^6/uL (4.20-5.40); RED CELL DISTRIBUTION WIDTH 14.4 % (12.0-15.0)
[2019-05-02 18:11] LABS: ALBUMIN 4.5 g/dL (3.2-5.5); ALBUMIN/GLOBULIN RATIO 1.6 (1.0-2.2); BILIRUBIN,TOTAL 1.4 mg/dL (0.2-1.0); CALCIUM 9.2 mg/dL (8.5-10.3); TOTAL PROTEIN 7.4 g/dL (6.7-8.2)
== END 2019-05-02 23:59 | disposition home or self-care (01) ==
LOC: LAB.S 08:00
PROVIDERS: ATTEND Family Medicine
DX: N18.9 Chronic kidney disease, unspecified (principal); D63.1 Anemia in chronic kidney disease
CPT/HCPCS: 36415; 80053; 85025

== ENCOUNTER 2019-07-12 13:40 | Outpatient (CLI) | payer MEDICARE ==
[2019-07-12 17:25] LABS: BASOPHILS # (AUTO) 0.1 10^3/uL (0.0-0.1); BASOPHILS % (AUTO) 1.2 %; EOSINOPHILS # (AUTO) 0.4 10^3/uL (0.0-0.7); EOSINOPHILS % (AUTO) 4.6 %; HGB - HEMOGLOBIN 12.7 g/dL (12.0-16.0); LYMPHOCYTES # (AUTO) 2.6 10^3/uL (1.5-3.5); LYMPHOCYTES % (AUTO) 27.6 %; MEAN CORPUSCULAR HEMOGLOBIN 26.1 pg (27.0-31.0); MEAN CORPUSCULAR HGB CONC 31.7 g/dL (32.0-36.0); MEAN CORPUSCULAR VOLUME 82.5 fL (81.0-99.0); MEAN PLATELET VOLUME 10.6 fL (7.9-10.8); MONOCYTES # (AUTO) 0.8 10^3/uL (0.0-1.0); MONOCYTES % (AUTO) 8.1 %; NEUTROPHILS # (AUTO) 5.4 10^3/uL (1.5-6.6); NEUTROPHILS % (AUTO) 58.1 %; PLT - PLATELET COUNT 390 10^3/uL (130-450); RED BLOOD COUNT 4.86 10^6/uL (4.20-5.40); RED CELL DISTRIBUTION WIDTH 16.7 % (12.0-15.0); WHITE BLOOD COUNT 9.4 x10^3/uL (4.8-10.8)
[2019-07-12 17:38] LABS: HEMOGLOBIN A1C 0.61 g/dL; HEMOGLOBIN A1C % 6.4 % (4.6-6.2)
[2019-07-12 17:53] LABS: ALBUMIN 4.4 g/dL (3.2-5.5); ALBUMIN/GLOBULIN RATIO 1.5 (1.0-2.2); BILIRUBIN,TOTAL 0.4 mg/dL (0.2-1.0); CALCIUM 9.6 mg/dL (8.5-10.3); TOTAL PROTEIN 7.4 g/dL (6.7-8.2)
[2019-07-12 17:58] LABS: FERRITIN 16.4 ng/mL (11.0-306.8)
[2019-07-12 18:02] LABS: FOLATE 13.23 ng/mL (5.90 - >24.8)
== END 2019-07-12 13:41 | disposition home or self-care (01) ==
LOC: LAB.S 13:40
PROVIDERS: ATTEND Family Medicine
DX: R79.89 Other specified abnormal findings of blood chemistry (principal); N18.9 Chronic kidney disease, unspecified; D63.1 Anemia in chronic kidney disease; E11.22 Type 2 diabetes mellitus with diabetic chronic kidney disease
CPT/HCPCS: 36415; 80053; 82607; 82728; 82746; 83036; 83540; 84466; 85025

== ENCOUNTER 2019-11-10 11:25 | Outpatient (CLI) | payer MEDICARE ==
--- NOTE | 2019-11-10 13:21 | XRAY Report ---
PROCEDURE: Cervical Spine 2 View INDICATIONS: C SPINE DJD TECHNIQUE: 3 view(s) of the cervical spine were acquired. COMPARISON: None. FINDINGS: Bones: No fractures or dislocations to the C7 level. The lateral masses of C1 appear intact on the odontoid view. No suspicious bony lesions. Multilevel disc space narrowing and endplate osteophyte formation throughout the cervical spine. Facet hypertrophy throughout the mid and lower cervical spin e. Soft tissues: No prevertebral soft tissue swelling. IMPRESSION: Multilevel degenerative disc and facet disease. No acute fracture. No osseous lesion. If symptoms and/or clinical suspicion for pathology continue, further assessment with repeat plain film s, or advanced imaging (e.g., CT, MRI, or bone scan) is recommended for further assessment. Reviewed by: Maritza Barksdale MD on 11/10/2019 1:19 PM PDT Approved by: Maritza Barksdale MD on 11/10/2019 1:19 PM PDT Station ID: [id number]
== END 2019-11-10 11:26 | disposition home or self-care (01) ==
LOC: DI.S 11:25
PROVIDERS: ATTEND Family Medicine
DX: M47.812 Spondylosis without myelopathy or radiculopathy, cervical region (principal); M50.31 Other cervical disc degeneration, high cervical region
CPT/HCPCS: 72040

== ENCOUNTER 2019-11-10 11:31 | Outpatient (CLI) | payer MEDICARE ==
[2019-11-10 15:02] LABS: ALBUMIN 4.6 g/dL (3.2-5.5); ALBUMIN/GLOBULIN RATIO 1.5 (1.0-2.2); BILIRUBIN,TOTAL 0.6 mg/dL (0.2-1.0); CALCIUM 9.3 mg/dL (8.5-10.3); CREATININE 0.7 mg/dL (0.4-1.0); TOTAL PROTEIN 7.7 g/dL (6.7-8.2)
[2019-11-10 15:03] LABS: BASOPHILS # (AUTO) 0.1 10^3/uL (0.0-0.1); BASOPHILS % (AUTO) 1.5 %; EOSINOPHILS # (AUTO) 0.3 10^3/uL (0.0-0.7); EOSINOPHILS % (AUTO) 4.2 %; HGB - HEMOGLOBIN 12.7 g/dL (12.0-16.0); LYMPHOCYTES # (AUTO) 2.2 10^3/uL (1.5-3.5); LYMPHOCYTES % (AUTO) 29.7 %; MEAN CORPUSCULAR HEMOGLOBIN 27.5 pg (27.0-31.0); MEAN CORPUSCULAR HGB CONC 31.9 g/dL (32.0-36.0); MEAN CORPUSCULAR VOLUME 86.3 fL (81.0-99.0); MEAN PLATELET VOLUME 10.4 fL (7.9-10.8); MONOCYTES # (AUTO) 0.7 10^3/uL (0.0-1.0); MONOCYTES % (AUTO) 8.9 %; NEUTROPHILS # (AUTO) 4.2 10^3/uL (1.5-6.6); NEUTROPHILS % (AUTO) 55.3 %; PLT - PLATELET COUNT 372 10^3/uL (130-450); RED BLOOD COUNT 4.61 10^6/uL (4.20-5.40); RED CELL DISTRIBUTION WIDTH 14.2 % (12.0-15.0); WHITE BLOOD COUNT 7.5 x10^3/uL (4.8-10.8)
[2019-11-10 15:16] LABS: % IRON SATURATION 8 % (20-50); IRON 38 ug/dL (28-170); TOTAL IRON BINDING CAPACITY 463 ug/dL (250-450); TRANSFERRIN 331 mg/dL (192-382)
[2019-11-10 15:17] LABS: THYROID STIMULATING HORMONE 2.05 uIU/mL (0.34-5.60)
[2019-11-10 15:19] LABS: FREE T4 (FREE THYROXINE) 0.96 ng/dL (0.58-1.64)
[2019-11-10 15:20] LABS: FREE T3 3.05 pg/mL (2.5-3.9)
[2019-11-10 15:23] LABS: FERRITIN 17.4 ng/mL (11.0-306.8)
[2019-11-10 15:32] LABS: HB2 TOTAL 13.5 g/dL; HEMOGLOBIN A1C 0.61 g/dL; HEMOGLOBIN A1C % 6.3 % (4.6-6.2)
== END 2019-11-10 11:32 | disposition home or self-care (01) ==
LOC: LAB.S 11:31
PROVIDERS: ATTEND Registered Nurse
DX: E11.22 Type 2 diabetes mellitus with diabetic chronic kidney disease (principal); N18.9 Chronic kidney disease, unspecified; D63.1 Anemia in chronic kidney disease; R53.83 Other fatigue; E61.1 Iron deficiency
CPT/HCPCS: 36415; 80053; 82626; 82728; 83036; 83540; 84439; 84443; 84466; 84481; 85025

== ENCOUNTER 2020-02-16 10:43 | Outpatient (CLI) | payer MEDICARE ==
[2020-02-16 15:40] LABS: MEAN CORPUSCULAR HEMOGLOBIN 30.1 pg (27.0-31.0); MEAN CORPUSCULAR HGB CONC 32.3 g/dL (32.0-36.0); MEAN CORPUSCULAR VOLUME 93.2 fL (81.0-99.0); MEAN PLATELET VOLUME 10.3 fL (7.9-10.8); RED BLOOD COUNT 3.99 10^6/uL (4.20-5.40); WHITE BLOOD COUNT 7.8 x10^3/uL (4.8-10.8)
[2020-02-16 15:51] LABS: ALBUMIN 4.4 g/dL (3.2-5.5); ALBUMIN/GLOBULIN RATIO 1.6 (1.0-2.2); BILIRUBIN,TOTAL 0.5 mg/dL (0.2-1.0); CALCIUM 9.2 mg/dL (8.5-10.3); CREATININE 0.8 mg/dL (0.4-1.0); TOTAL PROTEIN 7.2 g/dL (6.7-8.2)
[2020-02-16 16:03] LABS: CHOL/HDL RATIO 4.6 (<4.4); CHOLESTEROL 243 mg/dL; HDL CHOLESTEROL 53 mg/dL; LDL CHOLESTEROL,CALCULATED 128 mg/dL; LDL/HDL RATIO 2.4 (<4.4); VLDL CHOLESTEROL 62 mg/dL
[2020-02-16 19:59] LABS: HEMOGLOBIN A1c% 6.2 % (4.27-6.07)
== END 2020-02-16 10:44 | disposition home or self-care (01) ==
LOC: LAB.S 10:43
PROVIDERS: ATTEND Family Medicine
DX: E78.5 Hyperlipidemia, unspecified (principal); N18.9 Chronic kidney disease, unspecified; R53.83 Other fatigue; E61.1 Iron deficiency; E11.22 Type 2 diabetes mellitus with diabetic chronic kidney disease
CPT/HCPCS: 36415; 80053; 80061; 83036; 83721; 85027

== ENCOUNTER 2020-07-25 11:51 | Outpatient (CLI) | payer MEDICARE ==
[2020-07-25 14:41] LABS: BASOPHILS # (AUTO) 0.1 10^3/uL (0.0-0.1); BASOPHILS % (AUTO) 1.5 %; EOSINOPHILS # (AUTO) 0.3 10^3/uL (0.0-0.7); EOSINOPHILS % (AUTO) 3.5 %; HCT - HEMATOCRIT 36.2 % (37.0-47.0); HGB - HEMOGLOBIN 11.3 g/dL (12.0-16.0); LYMPHOCYTES # (AUTO) 1.9 10^3/uL (1.5-3.5); LYMPHOCYTES % (AUTO) 23.5 %; MEAN CORPUSCULAR HGB CONC 31.2 g/dL (32.0-36.0); MEAN CORPUSCULAR VOLUME 89.8 fL (81.0-99.0); MEAN PLATELET VOLUME 10.2 fL (7.9-10.8); MONOCYTES # (AUTO) 0.8 10^3/uL (0.0-1.0); MONOCYTES % (AUTO) 9.9 %; NEUTROPHILS # (AUTO) 5.1 10^3/uL (1.5-6.6); NEUTROPHILS % (AUTO) 61.1 %; PLT - PLATELET COUNT 396 10^3/uL (130-450); RED BLOOD COUNT 4.03 10^6/uL (4.20-5.40); RED CELL DISTRIBUTION WIDTH 13.9 % (12.0-15.0); WHITE BLOOD COUNT 8.3 x10^3/uL (4.8-10.8)
[2020-07-25 15:45] LABS: THYROID STIMULATING HORMONE 1.67 uIU/mL (0.34-5.60)
[2020-07-25 15:46] LABS: % IRON SATURATION 5 % (20-50); ALBUMIN 4.6 g/dL (3.2-5.5); ALBUMIN/GLOBULIN RATIO 1.5 (1.0-2.2); ALKALINE PHOSPHATASE 51 IU/L (42-121); ALT ALANINE AMINOTRANSFERASE 23 IU/L (10-60); AST ASPARTATE AMINOTRANSFERASE 26 IU/L (10-42); BILIRUBIN,TOTAL 0.7 mg/dL (0.2-1.0); BUN - BLOOD UREA NITROGEN 25 mg/dL (6-20); CALCIUM 9.3 mg/dL (8.5-10.3); CARBON DIOXIDE - CO2 23 mmol/L (21-32); CHLORIDE 101 mmol/L (101-111); CHOL/HDL RATIO 4.7 (<4.4); CHOLESTEROL 273 mg/dL; CREATININE 0.8 mg/dL (0.4-1.0); GFR - MDRD 70 (>89); GLUCOSE 138 mg/dL (70-100); HDL CHOLESTEROL 58 mg/dL; IRON 28 ug/dL (28-170); LDL CHOLESTEROL,CALCULATED 151 mg/dL; LDL/HDL RATIO 2.6 (<4.4); POTASSIUM 4.2 mmol/L (3.5-5.0); SODIUM 135 mmol/L (135-145); TOTAL IRON BINDING CAPACITY 515 ug/dL (250-450); TOTAL PROTEIN 7.6 g/dL (6.7-8.2); TRANSFERRIN 368 mg/dL (192-382); TRIGLYCERIDES 320 mg/dL; VLDL CHOLESTEROL 64 mg/dL
[2020-07-25 15:49] LABS: FREE T3 2.64 pg/mL (2.5-3.9); FREE T4 (FREE THYROXINE) 1.06 ng/dL (0.58-1.64)
[2020-07-25 15:53] LABS: TOTAL T3 0.71 ng/mL (0.87-1.78)
[2020-07-25 20:00] LABS: ESTIMATED AVERAGE GLUCOSE 128 mg/dL (70-100); HEMOGLOBIN A1c% 6.1 % (4.27-6.07)
[2020-07-26 10:57] LABS: HOMOCYSTEINE 8.2 umol/L (<10.4)
== END 2020-07-25 11:52 | disposition home or self-care (01) ==
LOC: LAB.S 11:51
PROVIDERS: ATTEND Family Medicine
DX: D64.9 Anemia, unspecified (principal); K92.1 Melena; R53.83 Other fatigue; E78.5 Hyperlipidemia, unspecified; E03.9 Hypothyroidism, unspecified; E11.9 Type 2 diabetes mellitus without complications
CPT/HCPCS: 36415; 80053; 80061; 82626; 82728; 83036; 83090; 83540; 83721; 84439; 84443; 84466; 84480; 84481; 85025; 86141

== ENCOUNTER 2020-07-31 13:48 | Outpatient (CLI) | payer MEDICARE ==
--- NOTE | 2020-08-01 13:26 | Mammography Report ---
BILATERAL DIGITAL SCREENING MAMMOGRAM 3D/2D: 07/31/2020 CLINICAL: Routine screening. Comparison is made to exams dated: 08/31/2018 mammogram, 04/20/2016 mammogram, 04/16/2015 mammogram, 03/28/2015 mammogram, 04/09/2011 mammogram, and 05/19/2013 mammogram - [facility]. The tissue of both breasts is predominantly fatty. No significant masses, calcifications, or other findings are seen in either breast. There has been no significant interval change. IMPRESSION: NEGATIVE There is no mammographic evidence of malignancy. A 1 year screening mammogram is recommended. This exam was interpreted at Station ID: [id number]. NOTE: For mammograms, a report in lay terms will be sent to the patient. Approximately 15% of breast malignancies will not be visualized mammographically. In the management of a palpable breast mass, a negative mammogram must not discourage biopsy of a clinically suspicious lesion. Electronically Signed By: Daryl Uriarte M.D., jr/marcos:07/31/2020 15:25:57 ACR BI-RADS Category 1: Negative 3341F PARENCHYMAL PATTERN: (F) - The breast(s) demonstrate(s) diffuse fatty replacement. BI-RADS CATEGORY: (1) - 1 RECOMMENDATION: (ANNUAL) - Recommend routine annual screening mammography. [id number] 1 year screening LATERALITY: (B)
== END 2020-07-31 13:49 | disposition home or self-care (01) ==
LOC: DI 13:48
PROVIDERS: ATTEND Family Medicine
DX: Z12.31 Encounter for screening mammogram for malignant neoplasm of breast (principal)

== ENCOUNTER 2020-07-31 13:49 | Outpatient (CLI) | payer MEDICARE ==
--- NOTE | 2020-07-31 16:37 | DEXA Report ---
PROCEDURE: Dexa Spine and/or Hip INDICATIONS: POSTMENOPAUSAL TECHNIQUE: Dual energy x-ray absorptiometry (DXA) was performed on a [employer] System. Regions measur ed are the AP Spine, femoral neck, and if needed forearm. COMPARISON: DEXA 03/04/2018 FINDINGS: Lumbar Spine: Bone Mineral Density 1.460 g/cm/cm,T score 2.2, compared to 3.1 Left Hip: Bone Mineral Density 0.888 g/cm/cm,T score -0.9, compared to -0.4 Left Femoral Neck: Bone Mineral Density 0.836 g/cm/cm, T score -1.5, compared to -1.0 (T score greater or equal to -1.0: NORMAL) (T score from -1.1 to -2.4: OSTEOPENIA) (T score less than or equal to -2.5 to: OSTEOPOROSIS) Impression: Osteopenia within the left femoral neck, progressive compared to prior exam. While bone m ineral density within the lumbar spine and left hip are still within normal limits, left hip bone min eral density is now borderline osteopenic, progressive compared to prior exam. Patients with diagnosis of osteoporosis or osteopenia should have regular bone mineral density assess ment. For those eligible for Medicare, routine testing is allowed once every 2 years. Testing frequ ency can be increased for patients who have rapidly progressing disease or for those who are receivin g medical therapy to restore bone mass. Reviewed by: Vero Eng MD on 07/31/2020 4:36 PM PST Approved by: Vero Eng MD on 07/31/2020 4:36 PM PST Station ID: [id number]
== END 2020-07-31 13:50 | disposition home or self-care (01) ==
LOC: DI 13:49
PROVIDERS: ATTEND Family Medicine
DX: M85.88 Other specified disorders of bone density and structure, other site (principal); Z78.0 Asymptomatic menopausal state

== ENCOUNTER 2020-11-01 09:38 | Outpatient (CLI) | payer MEDICARE ==
[2020-11-01 14:46] LABS: BASOPHILS # (AUTO) 0.1 10^3/uL (0.0-0.1); BASOPHILS % (AUTO) 1.1 %; EOSINOPHILS # (AUTO) 0.3 10^3/uL (0.0-0.7); EOSINOPHILS % (AUTO) 4.3 %; HCT - HEMATOCRIT 35.3 % (37.0-47.0); HGB - HEMOGLOBIN 10.7 g/dL (12.0-16.0); LYMPHOCYTES % (AUTO) 24.4 %; MEAN CORPUSCULAR HEMOGLOBIN 26.8 pg (27.0-31.0); MEAN CORPUSCULAR HGB CONC 30.3 g/dL (32.0-36.0); MEAN CORPUSCULAR VOLUME 88.5 fL (81.0-99.0); MEAN PLATELET VOLUME 10.3 fL (7.9-10.8); MONOCYTES # (AUTO) 0.8 10^3/uL (0.0-1.0); MONOCYTES % (AUTO) 9.9 %; NEUTROPHILS # (AUTO) 4.8 10^3/uL (1.5-6.6); PLT - PLATELET COUNT 399 10^3/uL (130-450); RED BLOOD COUNT 3.99 10^6/uL (4.20-5.40)
[2020-11-01 15:15] LABS: ALBUMIN 4.4 g/dL (3.2-5.5); ALBUMIN/GLOBULIN RATIO 1.5 (1.0-2.2); ALKALINE PHOSPHATASE 55 IU/L (42-121); ALT ALANINE AMINOTRANSFERASE 21 IU/L (10-60); AST ASPARTATE AMINOTRANSFERASE 21 IU/L (10-42); BILIRUBIN,TOTAL 0.4 mg/dL (0.2-1.0); BUN - BLOOD UREA NITROGEN 24 mg/dL (6-20); CALCIUM 9.3 mg/dL (8.5-10.3); CARBON DIOXIDE - CO2 22 mmol/L (21-32); CHLORIDE 101 mmol/L (101-111); CHOL/HDL RATIO 4.7 (<4.4); CHOLESTEROL 248 mg/dL; CREATININE 0.8 mg/dL (0.4-1.0); GFR - MDRD 70 (>89); GLUCOSE 155 mg/dL (70-100); HDL CHOLESTEROL 53 mg/dL; LDL CHOLESTEROL,CALCULATED 127 mg/dL; LDL/HDL RATIO 2.4 (<4.4); POTASSIUM 4.1 mmol/L (3.5-5.0); SODIUM 136 mmol/L (135-145); TOTAL PROTEIN 7.3 g/dL (6.7-8.2); TRIGLYCERIDES 341 mg/dL; VLDL CHOLESTEROL 68 mg/dL
[2020-11-01 15:31] LABS: THYROID STIMULATING HORMONE 1.79 uIU/mL (0.34-5.60)
[2020-11-01 15:32] LABS: FREE T3 3.79 pg/mL (2.5-3.9)
[2020-11-01 15:33] LABS: FREE T4 (FREE THYROXINE) 0.79 ng/dL (0.58-1.64)
[2020-11-01 15:37] LABS: FERRITIN 9.8 ng/mL (11.0-306.8)
[2020-11-01 19:59] LABS: ESTIMATED AVERAGE GLUCOSE 137 mg/dL (70-100); HEMOGLOBIN A1c% 6.4 % (4.27-6.07)
== END 2020-11-01 09:39 | disposition home or self-care (01) ==
LOC: LAB.S 09:38
PROVIDERS: ATTEND Family Medicine
DX: E03.9 Hypothyroidism, unspecified (principal); E78.5 Hyperlipidemia, unspecified; D64.9 Anemia, unspecified; E11.9 Type 2 diabetes mellitus without complications; I10 Essential (primary) hypertension
CPT/HCPCS: 36415; 80053; 80061; 82728; 83036; 83721; 84439; 84443; 84480; 84481; 84482; 85025

== ENCOUNTER 2021-02-07 10:51 | Outpatient (CLI) | payer MEDICARE ==
[2021-02-07 14:36] LABS: BASOPHILS # (AUTO) 0.1 10^3/uL (0.0-0.1); BASOPHILS % (AUTO) 1.4 %; EOSINOPHILS # (AUTO) 0.4 10^3/uL (0.0-0.7); EOSINOPHILS % (AUTO) 4.6 %; HCT - HEMATOCRIT 34.1 % (37.0-47.0); HGB - HEMOGLOBIN 10.6 g/dL (12.0-16.0); LYMPHOCYTES # (AUTO) 1.8 10^3/uL (1.5-3.5); LYMPHOCYTES % (AUTO) 23.5 %; MEAN CORPUSCULAR HEMOGLOBIN 28.7 pg (27.0-31.0); MEAN CORPUSCULAR HGB CONC 31.1 g/dL (32.0-36.0); MEAN CORPUSCULAR VOLUME 92.4 fL (81.0-99.0); MEAN PLATELET VOLUME 10.4 fL (7.9-10.8); MONOCYTES # (AUTO) 0.7 10^3/uL (0.0-1.0); MONOCYTES % (AUTO) 9.7 %; NEUTROPHILS # (AUTO) 4.6 10^3/uL (1.5-6.6); NEUTROPHILS % (AUTO) 60.5 %; PLT - PLATELET COUNT 377 10^3/uL (130-450); RED BLOOD COUNT 3.69 10^6/uL (4.20-5.40); RED CELL DISTRIBUTION WIDTH 14.3 % (12.0-15.0); WHITE BLOOD COUNT 7.7 x10^3/uL (4.8-10.8)
[2021-02-07 16:03] LABS: % IRON SATURATION 6 % (20-50); ALBUMIN 4.4 g/dL (3.2-5.5); ALBUMIN/GLOBULIN RATIO 1.6 (1.0-2.2); ALKALINE PHOSPHATASE 49 IU/L (42-121); ALT ALANINE AMINOTRANSFERASE 26 IU/L (10-60); AST ASPARTATE AMINOTRANSFERASE 24 IU/L (10-42); BILIRUBIN,TOTAL 0.4 mg/dL (0.2-1.0); BUN - BLOOD UREA NITROGEN 25 mg/dL (6-20); CALCIUM 8.8 mg/dL (8.5-10.3); CARBON DIOXIDE - CO2 24 mmol/L (21-32); CHLORIDE 100 mmol/L (101-111); CHOL/HDL RATIO 2.5 (<4.4); CHOLESTEROL 108 mg/dL; CREATININE 0.8 mg/dL (0.4-1.0); CRP HIGH SENSITIVITY 2.9 mg/L; GFR - MDRD 70 (>89); GLUCOSE 143 mg/dL (70-100); HDL CHOLESTEROL 43 mg/dL; IRON 34 ug/dL (28-170); LDL CHOLESTEROL,CALCULATED 20 mg/dL; LDL/HDL RATIO 0.5 (<4.4); SODIUM 135 mmol/L (135-145); TOTAL IRON BINDING CAPACITY 528 ug/dL (250-450); TOTAL PROTEIN 7.2 g/dL (6.7-8.2); TRANSFERRIN 377 mg/dL (192-382); TRIGLYCERIDES 226 mg/dL; VLDL CHOLESTEROL 45 mg/dL
[2021-02-07 16:04] LABS: FREE T4 (FREE THYROXINE) 0.75 ng/dL (0.58-1.64); THYROID STIMULATING HORMONE 1.37 uIU/mL (0.34-5.60)
[2021-02-07 16:05] LABS: FREE T3 3.42 pg/mL (2.5-3.9)
[2021-02-07 16:07] LABS: FERRITIN 12.1 ng/mL (11.0-306.8)
[2021-02-07 20:52] LABS: ESTIMATED AVERAGE GLUCOSE 126 mg/dL (70-100)
== END 2021-02-07 10:52 | disposition home or self-care (01) ==
LOC: LAB.S 10:51
PROVIDERS: ATTEND Family Medicine
DX: D64.9 Anemia, unspecified (principal); R53.83 Other fatigue; E11.9 Type 2 diabetes mellitus without complications; I10 Essential (primary) hypertension; E55.9 Vitamin D deficiency, unspecified; E78.5 Hyperlipidemia, unspecified; E03.9 Hypothyroidism, unspecified
CPT/HCPCS: 36415; 80053; 80061; 82306; 82626; 82728; 83036; 83090; 83540; 83721; 84439; 84443; 84466; 84480; 84481; 84482; 85025; 86141

== ENCOUNTER 2021-04-22 11:09 | Outpatient (CLI) | payer MEDICARE ==
[2021-04-22 15:02] LABS: BASOPHILS # (AUTO) 0.1 10^3/uL (0.0-0.1); BASOPHILS % (AUTO) 1.3 %; EOSINOPHILS # (AUTO) 0.3 10^3/uL (0.0-0.7); EOSINOPHILS % (AUTO) 4.2 %; HCT - HEMATOCRIT 36.9 % (37.0-47.0); HGB - HEMOGLOBIN 11.5 g/dL (12.0-16.0); LYMPHOCYTES # (AUTO) 1.9 10^3/uL (1.5-3.5); LYMPHOCYTES % (AUTO) 25.4 %; MEAN CORPUSCULAR HEMOGLOBIN 28.8 pg (27.0-31.0); MEAN CORPUSCULAR HGB CONC 31.2 g/dL (32.0-36.0); MEAN CORPUSCULAR VOLUME 92.5 fL (81.0-99.0); MEAN PLATELET VOLUME 10.2 fL (7.9-10.8); MONOCYTES # (AUTO) 0.8 10^3/uL (0.0-1.0); MONOCYTES % (AUTO) 10.8 %; NEUTROPHILS # (AUTO) 4.4 10^3/uL (1.5-6.6); PLT - PLATELET COUNT 355 10^3/uL (130-450); RED BLOOD COUNT 3.99 10^6/uL (4.20-5.40); RED CELL DISTRIBUTION WIDTH 13.2 % (12.0-15.0); WHITE BLOOD COUNT 7.6 x10^3/uL (4.8-10.8)
[2021-04-22 15:53] LABS: MICROALBUM/CREATININE RATIO,UR 176.5 ug/mg (<30.0)
[2021-04-22 16:30] LABS: ALBUMIN 4.4 g/dL (3.2-5.5); ALBUMIN/GLOBULIN RATIO 1.6 (1.0-2.2); ALKALINE PHOSPHATASE 49 IU/L (42-121); ALT ALANINE AMINOTRANSFERASE 24 IU/L (10-60); AST ASPARTATE AMINOTRANSFERASE 24 IU/L (10-42); BILIRUBIN,TOTAL 0.8 mg/dL (0.2-1.0); BUN - BLOOD UREA NITROGEN 27 mg/dL (6-20); CALCIUM 9.4 mg/dL (8.5-10.3); CARBON DIOXIDE - CO2 24 mmol/L (21-32); CHLORIDE 99 mmol/L (101-111); CHOL/HDL RATIO 2.8 (<4.4); CHOLESTEROL 127 mg/dL; CREATININE 0.9 mg/dL (0.4-1.0); GFR - MDRD 61 (>89); GLUCOSE 149 mg/dL (70-100); HDL CHOLESTEROL 45 mg/dL; LDL CHOLESTEROL,CALCULATED 38 mg/dL; LDL/HDL RATIO 0.8 (<4.4); POTASSIUM 4.1 mmol/L (3.5-5.0); SODIUM 134 mmol/L (135-145); TOTAL PROTEIN 7.2 g/dL (6.7-8.2); TRIGLYCERIDES 222 mg/dL; VLDL CHOLESTEROL 44 mg/dL
[2021-04-22 21:22] LABS: ESTIMATED AVERAGE GLUCOSE 131 mg/dL (70-100); HEMOGLOBIN A1c% 6.2 % (4.27-6.07)
== END 2021-04-22 11:10 | disposition home or self-care (01) ==
LOC: LAB.S 11:09
PROVIDERS: ATTEND Registered Nurse
DX: I12.9 Hypertensive chronic kidney disease with stage 1 through stage 4 chronic kidney disease, or unspecified chronic kidney disease (principal); E11.22 Type 2 diabetes mellitus with diabetic chronic kidney disease; N18.30 Chronic kidney disease, stage 3 unspecified; E78.5 Hyperlipidemia, unspecified; R94.5 Abnormal results of liver function studies
CPT/HCPCS: 36415; 80053; 80061; 82043; 82570; 83036; 83721; 85025

== ENCOUNTER 2021-09-03 11:13 | Outpatient (CLI) | payer MEDICARE ==
[2021-09-03 14:35] LABS: BASOPHILS # (AUTO) 0.1 10^3/uL (0.0-0.1); BASOPHILS % (AUTO) 1.3 %; EOSINOPHILS # (AUTO) 0.2 10^3/uL (0.0-0.7); EOSINOPHILS % (AUTO) 3.1 %; HCT - HEMATOCRIT 35.2 % (37.0-47.0); HGB - HEMOGLOBIN 11.4 g/dL (12.0-16.0); LYMPHOCYTES # (AUTO) 1.9 10^3/uL (1.5-3.5); LYMPHOCYTES % (AUTO) 24.5 %; MEAN CORPUSCULAR HEMOGLOBIN 29.4 pg (27.0-31.0); MEAN CORPUSCULAR HGB CONC 32.4 g/dL (32.0-36.0); MEAN CORPUSCULAR VOLUME 90.7 fL (81.0-99.0); MEAN PLATELET VOLUME 10.3 fL (7.9-10.8); MONOCYTES # (AUTO) 0.7 10^3/uL (0.0-1.0); MONOCYTES % (AUTO) 9.4 %; NEUTROPHILS # (AUTO) 4.7 10^3/uL (1.5-6.6); NEUTROPHILS % (AUTO) 61.4 %; PLT - PLATELET COUNT 381 10^3/uL (130-450); RED BLOOD COUNT 3.88 10^6/uL (4.20-5.40); RED CELL DISTRIBUTION WIDTH 12.7 % (12.0-15.0); WHITE BLOOD COUNT 7.6 x10^3/uL (4.8-10.8)
[2021-09-03 15:19] LABS: ALBUMIN 4.3 g/dL (3.2-5.5); ALBUMIN/GLOBULIN RATIO 1.5 (1.0-2.2); BILIRUBIN,TOTAL 0.6 mg/dL (0.2-1.0); CALCIUM 9.3 mg/dL (8.5-10.3); CREATININE 0.9 mg/dL (0.4-1.0); CRP HIGH SENSITIVITY 3.4 mg/L; POTASSIUM 4.4 mmol/L (3.5-5.0); TOTAL PROTEIN 7.2 g/dL (6.7-8.2)
[2021-09-03 15:24] LABS: THYROID STIMULATING HORMONE 1.47 uIU/mL (0.34-5.60)
[2021-09-03 15:25] LABS: FREE T3 3.79 pg/mL (2.5-3.9); FREE T4 (FREE THYROXINE) 0.75 ng/dL (0.58-1.64)
[2021-09-03 15:30] LABS: FERRITIN 14.2 ng/mL (11.0-306.8)
[2021-09-04 11:51] LABS: HOMOCYSTEINE 12.2 umol/L (<10.4)
== END 2021-09-03 11:14 | disposition home or self-care (01) ==
LOC: LAB.S 11:13
PROVIDERS: ATTEND Family Medicine
DX: D64.9 Anemia, unspecified (principal); R53.83 Other fatigue; E55.9 Vitamin D deficiency, unspecified; E11.9 Type 2 diabetes mellitus without complications; I10 Essential (primary) hypertension; E78.5 Hyperlipidemia, unspecified; E03.9 Hypothyroidism, unspecified; R42 Dizziness and giddiness
CPT/HCPCS: 36415; 80053; 81599; 82306; 82626; 82728; 83036; 83090; 84439; 84443; 84480; 84481; 84482; 85025; 86141

== ENCOUNTER 2021-09-17 15:27 | Outpatient (CLI) | payer MEDICARE | END 2021-09-17 15:28 | disposition home or self-care (01) | LOC: LAB.S 15:27 | PROVIDERS: ATTEND Family Medicine | DX: R20.2 Paresthesia of skin (principal); M65.30 Trigger finger, unspecified finger | CPT/HCPCS: 36415; 82607 ==

== ENCOUNTER 2022-03-09 15:35 | Outpatient (CLI) | payer MEDICARE ==
--- NOTE | 2022-03-09 17:28 | XRAY Report ---
PROCEDURE: Hand 3 View RT INDICATIONS: FALL AND ACUTE INJURY TO 4TH DIGIT TECHNIQUE: 3 views of the hand(s) acquired. COMPARISON: None FINDINGS: Bones: There is an ossification subjacent to the PIP joint of the fourth finger at its medial aspect. Suggest correlation for presence or absence of point tenderness. No suspicious bony lesions. Soft tissues: No suspicious soft tissue calcifications. IMPRESSION: Possible avulsion at the fourth PIP joint. Recommend clinical correlation for point tenderness and in ability to flex and extend finger. Reviewed by: Campos Treviño MD on 03/09/2022 5:27 PM PDT Approved by: Campos Treviño MD on 03/09/2022 5:27 PM PDT Station ID: [id number]
== END 2022-03-09 15:36 | disposition home or self-care (01) ==
LOC: DI.S 15:35
PROVIDERS: ATTEND Family Medicine
DX: S69.91XA Unspecified injury of right wrist, hand and finger(s), initial encounter (principal)

== ENCOUNTER 2022-06-17 10:22 | Outpatient (CLI) | payer MEDICARE ==
[2022-06-17 14:07] LABS: BASOPHILS # (AUTO) 0.1 10^3/uL (0.0-0.1); BASOPHILS % (AUTO) 1.8 %; EOSINOPHILS # (AUTO) 0.6 10^3/uL (0.0-0.7); EOSINOPHILS % (AUTO) 7.6 %; HCT - HEMATOCRIT 35.7 % (37.0-47.0); HGB - HEMOGLOBIN 10.7 g/dL (12.0-16.0); LYMPHOCYTES # (AUTO) 1.8 10^3/uL (1.5-3.5); LYMPHOCYTES % (AUTO) 22.9 %; MEAN CORPUSCULAR HEMOGLOBIN 25.7 pg (27.0-31.0); MEAN CORPUSCULAR VOLUME 85.8 fL (81.0-99.0); MEAN PLATELET VOLUME 10.3 fL (7.9-10.8); MONOCYTES # (AUTO) 0.9 10^3/uL (0.0-1.0); NEUTROPHILS # (AUTO) 4.5 10^3/uL (1.5-6.6); NEUTROPHILS % (AUTO) 56.6 %; PLT - PLATELET COUNT 424 10^3/uL (130-450); RED BLOOD COUNT 4.16 10^6/uL (4.20-5.40); RED CELL DISTRIBUTION WIDTH 13.9 % (12.0-15.0); WHITE BLOOD COUNT 7.9 x10^3/uL (4.8-10.8)
[2022-06-17 14:41] LABS: THYROID STIMULATING HORMONE 1.54 uIU/mL (0.34-5.60)
[2022-06-17 14:43] LABS: FREE T3 2.89 pg/mL (2.5-3.9); FREE T4 (FREE THYROXINE) 0.81 ng/dL (0.58-1.64)
[2022-06-17 14:48] LABS: FERRITIN 10.3 ng/mL (11.0-306.8)
[2022-06-17 14:50] LABS: % IRON SATURATION 5 % (20-50); ALBUMIN 4.3 g/dL (3.2-5.5); ALBUMIN/GLOBULIN RATIO 1.5 (1.0-2.2); ALKALINE PHOSPHATASE 54 IU/L (42-121); ALT ALANINE AMINOTRANSFERASE 22 IU/L (10-60); AST ASPARTATE AMINOTRANSFERASE 23 IU/L (10-42); BILIRUBIN,TOTAL 0.6 mg/dL (0.2-1.0); BUN - BLOOD UREA NITROGEN 29 mg/dL (6-20); CALCIUM 9.2 mg/dL (8.5-10.3); CARBON DIOXIDE - CO2 23 mmol/L (21-32); CHLORIDE 99 mmol/L (101-111); CHOL/HDL RATIO 2.9 (<4.4); CHOLESTEROL 130 mg/dL; CREATININE 0.9 mg/dL (0.4-1.0); CRP HIGH SENSITIVITY 2.9 mg/L; GFR - MDRD 60 (>89); GLUCOSE 172 mg/dL (70-100); HDL CHOLESTEROL 45 mg/dL; IRON 26 ug/dL (28-170); LDL CHOLESTEROL,CALCULATED 40 mg/dL; LDL/HDL RATIO 0.9 (<4.4); SODIUM 132 mmol/L (135-145); TOTAL IRON BINDING CAPACITY 554 ug/dL (250-450); TOTAL PROTEIN 7.2 g/dL (6.7-8.2); TRANSFERRIN 396 mg/dL (192-382); TRIGLYCERIDES 224 mg/dL; VLDL CHOLESTEROL 45 mg/dL
[2022-06-17 18:48] LABS: ESTIMATED AVERAGE GLUCOSE 160 mg/dL (70-100); HEMOGLOBIN A1c% 7.2 % (4.27-6.07)
[2022-06-18 04:09] LABS: VITAMIN D 25-HYDROXY 71.1 ng/mL (30.0-100.0)
== END 2022-06-17 10:23 | disposition home or self-care (01) ==
LOC: LAB.S 10:22
PROVIDERS: ATTEND Family Medicine
DX: E11.9 Type 2 diabetes mellitus without complications (principal); I10 Essential (primary) hypertension; E78.5 Hyperlipidemia, unspecified; D64.9 Anemia, unspecified; E03.9 Hypothyroidism, unspecified; E55.9 Vitamin D deficiency, unspecified; R53.83 Other fatigue; R42 Dizziness and giddiness
CPT/HCPCS: 36415; 80053; 80061; 82306; 82626; 82728; 83036; 83090; 83540; 83721; 84439; 84443; 84466; 84480; 84481; 84482; 85025; 86141

== ENCOUNTER 2022-07-20 10:26 | Outpatient (CLI) | payer MEDICARE ==
--- NOTE | 2022-07-20 15:33 | XRAY Report ---
PROCEDURE: Chest 2 View X-Ray INDICATIONS: COUGH TECHNIQUE: 2 views of the chest were acquired. COMPARISON: Chest x-ray 06/18/2018. FINDINGS: Surgical changes and devices: None. Lungs and pleura: No pleural effusions or pneumothorax. Lungs are clear. Mediastinum: Mediastinal contours are normal. Heart size is mildly prominent. Bones and chest wall: No suspicious bony abnormalities. Soft tissues appear unremarkable. IMPRESSION: No acute pulmonary process. Reviewed by: Vero Eng MD on 07/20/2022 3:32 PM PST Approved by: Vero Eng MD on 07/20/2022 3:32 PM [facility] Station ID: [id number]
== END 2022-07-20 10:27 | disposition home or self-care (01) ==
LOC: DI.S 10:26
PROVIDERS: ATTEND Family Medicine
DX: R05.9 Cough, unspecified (principal)

== ENCOUNTER 2022-10-04 09:14 | Emergency (ER) | payer MEDICARE ==
--- NOTE | 2022-10-04 11:17 | ED Physician Documentation ---
PD HPI HEENT - Stated complaint Stated Complaint: SORE THROAT/HEAD PX - Chief complaint Chief Complaint: Heent - History obtained from History obtained from: Patient - History of Present Illness Timing - onset: How many days ago (3) Timing - duration: Days (3) Timing - details: Gradual onset, Still present Location: Right ear, Nose, Throat Improves: Medication Worsens: Swalllowing Associated symptoms: Congestion, Rhinorrhea, Swollen nodes, Cough Similar symptoms before: Diagnosis (OM with rupture) Recently seen: Not recently seen - Additional information Additional information: 77-year-old Trice Lizarraga has recently returned from [place] where she was visiting her daughter and over the past 3 days she has developed congestion and pain in the right ear the throat and drainage from the right nares. She has now began to develop drainage from the right ear. She has had this happen to her previously with a TM rupture. She has developed fever she has a slight cough and she feels unwell. She does have an appointment to see an ear nose and throat doctor in 2 weeks time. Review of Systems Constitutional: reports: Fever Eyes: denies: Decreased vision Ears: reports: Ear pain, Drainage/discharge Nose: reports: Rhinorrhea / runny nose, Congestion Throat: reports: Sore throat Cardiac: denies: Chest pain / pressure, Palpitations Respiratory: reports: Cough. 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 HEENT: Cataracts, Tonsil/Adenoidectomy - Present Medications Home Medications: Ambulatory Orders Medication Instructions Recorded Confirmed Acetaminophen [Tylenol] 650 mg PO Q6H PRN 01/04/13 05/29/21 Aspirin [Aspir 81] 81 mg PO DAILY 01/04/13 05/29/21 Felodipine [Felodipine ER] 10 mg PO DAILY 01/04/13 05/29/21 Furosemide 40 mg PO DAILY 01/04/13 05/29/21 Losartan [Cozaar] 50 mg PO BID 01/04/13 05/29/21 Metformin HCl [Metformin HCl ER] 1,000 mg PO BIDWM 01/04/13 05/29/21 Atorvastatin Calcium 40 mg PO DAILY 09/25/16 05/29/21 Cholecalciferol (Vitamin D3) 2,000 unit PO DAILY 09/25/16 05/29/21 [Vitamin D] Cyanocobalamin (Vitamin B-12) 1,000 mcg PO DAILY 09/25/16 05/29/21 [Vitamin B-12] Amox/Clav 875/125 [Augmentin] 1 each PO Q12H #20 tablet 10/04/22 - Allergies Allergies/Adverse Reactions: Allergies Allergy/AdvReac Type Severity Reaction Status Date / Time codeine [Codeine] AdvReac Intermediate Nausea Verified 10/04/22 09:35 - Social History Does the pt smoke?: No Smoking Status: Never smoker Does the pt drink ETOH?: No Does the pt have substance abuse?: No - Immunizations Immunizations are current?: Yes - POLST Patient has POLST: No PD ED PE NORMAL - Vitals Vital signs reviewed: Yes (febrile and hypertensive) - General General: Alert and oriented X 3, No acute distress, Well developed/nourished - HEENT HEENT: Atraumatic, PERRL, EOMI, Other (Right TM is not visible drainage from the ear is serous without smell. Left is clear the pharynx is inflamed mucous membranes are parched. ) - Neck Neck: Supple, no meningeal sign, No bony TTP, Other (tender submandibular adenopathy on the right. ) - Cardiac Cardiac: RRR, No murmur - Respiratory Respiratory: No respiratory distress, Clear bilaterally - Abdomen Abdomen: Soft, Non tender - Back Back: No CVA TTP, No spinal TTP - Derm Derm: Normal color, Warm and dry, No rash - Extremities Extremities: No deformity, No edema - Neuro Neuro: Alert and oriented X 3, shipping assistant 2-12 intact, No motor deficit, No sensory deficit, Normal speech Eye Opening: Spontaneous Motor: Obeys Commands Verbal: Oriented GCS Score: 15 - Psych Psych: Normal mood, Normal affect Results - Vitals Vitals: Vital Signs - 24 hr 10/04/22 09:31 Temperature 38.8 C H Heart Rate 84 Respiratory 15 Rate Blood Pressure 153/67 H O2 Saturation 97 Oxygen O2 Source Room air PD Medical Decision Making - ED course Complexity details: considered differential, d/w patient ED course: 77-year-old female with serous drainage from the right ear and a fever appears to have ruptured otitis on the right. She has sore throat associated with this as well as sinus drainage. She is administered 10 mg of dexamethasone we will place her on some Augmentin. Departure - Departure Disposition: 01 Home, Self Care Clinical Impression: Otitis media Qualifiers: Otitis media type: suppurative Chronicity: acute Laterality: right Recurrence: recurrent Spontaneous tympanic membrane rupture: with spontaneous rupture Qualified Code(s): H66.014 - Acute suppurative otitis media with spontaneous rupture of ear drum, recurrent, right ear Condition: Stable Instructions: ED Otitis Media Acute Adult Follow-Up: Amor Trevizo MD [Primary Care Provider] - Prescriptions: Amox/Clav 875/125 [Augmentin] 1 each PO Q12H #20 tablet Comments: Trice today looks like you have a ruptured eardrum on the right side and this is draining. This will require a course of antibiotic and follow-up with your ear nose and throat doctor. I have E scribed some Augmentin to the [facility] in [place]. Our expectation with treatment is continued improvement once luna atment is begun and if you are failing despite this return to the Emergency Department for more aggressive treatment.
[2022-10-04] MEDS: DEXAMETHASONE 10 MG/ML VIAL PO STA (11:18)
[2022-10-04] MEDS: CHERRY SYRUP 10 ML UDC PO ONE (11:18)
[2022-10-04 11:38] VITALS: BP 154/72
== END 2022-10-04 11:38 | disposition home or self-care (01) ==
LOC: ED 09:14
DX: H66.014 Acute suppurative otitis media with spontaneous rupture of ear drum, recurrent, right ear (principal); I10 Essential (primary) hypertension; E78.00 Pure hypercholesterolemia, unspecified; E11.9 Type 2 diabetes mellitus without complications; Z79.899 Other long term (current) drug therapy; Z79.82 Long term (current) use of aspirin
CPT/HCPCS: 99283; A9270

== ENCOUNTER 2023-01-04 14:47 | Emergency (ER) | payer MEDICARE ==
[2023-01-04 15:09] VITALS: BP 136/65; O2SAT 95
--- NOTE | 2023-01-04 16:50 | ED Physician Documentation ---
History of Present Illness - Stated complaint Stated Complaint: EAR PX - Chief complaint Chief Complaint: Heent - History obtained from History obtained from: Patient - History of Present Illness Pain level max: 0 Pain level now: 0 - Additonal information Additional information: 77-year-old female presents to the emergency department stating that she has impacted cerumen in the right ear and a "growth" in the left ear like a "mattress". She is very hard of hearing. She states she was supposed to see ENT but cannot get an appointment for several months. She saw her doctor yesterday and came in today to evaluate the "growth". 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 HEENT: Cataracts, Tonsil/Adenoidectomy - Present Medications Home Medications: Ambulatory Orders Medication Instructions Recorded Confirmed Acetaminophen [Tylenol] 650 mg PO Q6H PRN 01/04/13 05/29/21 Aspirin [Aspir 81] 81 mg PO DAILY 01/04/13 05/29/21 Felodipine [Felodipine ER] 10 mg PO DAILY 01/04/13 05/29/21 Furosemide 40 mg PO DAILY 01/04/13 05/29/21 Losartan [Cozaar] 50 mg PO BID 01/04/13 05/29/21 Metformin HCl [Metformin HCl ER] 1,000 mg PO BIDWM 01/04/13 05/29/21 Atorvastatin Calcium 40 mg PO DAILY 09/25/16 05/29/21 Cholecalciferol (Vitamin D3) 2,000 unit PO DAILY 09/25/16 05/29/21 [Vitamin D] Cyanocobalamin (Vitamin B-12) 1,000 mcg PO DAILY 09/25/16 05/29/21 [Vitamin B-12] Amox/Clav 875/125 [Augmentin] 1 each PO Q12H #20 tablet 10/04/22 - Allergies Allergies/Adverse Reactions: Allergies Allergy/AdvReac Type Severity Reaction Status Date / Time codeine [Codeine] AdvReac Intermediate Nausea Verified 01/04/23 14:58 - Social History Does the pt smoke?: No Smoking Status: Never smoker Does the pt drink ETOH?: No Does the pt have substance abuse?: No - Immunizations Immunizations are current?: Yes - POLST Patient has POLST: No PD ED PE NORMAL - Vitals Vital signs reviewed: Yes - General General: Alert and oriented X 3, No acute distress - HEENT HEENT: Other (Right ear is obscured by cerumen impaction. Left ear has a small cholesteatoma) - Neck Neck: Supple, no meningeal sign - Cardiac Cardiac: RRR, Strong equal pulses - Respiratory Respiratory: No respiratory distress, Clear bilaterally - Derm Derm: Warm and dry - Neuro Neuro: Alert and oriented X 3 - Psych Psych: Normal mood, Normal affect Results - Vitals Vitals: Vital Signs - 24 hr 01/04/23 14:58 Temperature 36.5 C Heart Rate 85 Respiratory 16 Rate Blood Pressure 136/65 H O2 Saturation 95 Oxygen O2 Source Room air PD Medical Decision Making - ED course Complexity details: considered differential, d/w patient ED course: The right ear was irrigated and cerumen removed. Tolerated well. No complications. The left ear has a small Cholesteatoma. She will follow-up with ENT as scheduled. No emergency medical condition at this time. Patient counseled regarding signs and symptoms for which I believe and urgent re-evaluat ion would be necessary. Patient with good understanding of and agreement to plan and is comfortable going home at this time This document was made in part using voice recognition software. While efforts are made to proofread this document, sound alike and grammatical errors may occur. Departure - Departure Disposition: 01 Home, Self Care Clinical Impression: Cholesteatoma Qualifiers: Laterality: left Qualified Code(s): H71.92 - Unspecified cholesteatoma, left ear Cerumen impaction Qualifiers: Laterality: right Qualified Code(s): H61.21 - Impacted cerumen, right ear Condition: Good Instructions: ED Wax Ear Home Removal Follow-Up: Yue Kaminski ARNP [Credentialed Staff Provider] - Within 1 week Comments: Please follow-up with your doctor for further care. Follow-up as recommended by your doctor with ENT, you appear to have a cholesteatoma of your left ear. Your earwax was removed from your right ear. Forms: PCP List Discharge Date/Time: 01/04/23 16:58
== END 2023-01-04 16:58 | disposition home or self-care (01) ==
LOC: ED 14:47
DX: H71.92 Unspecified cholesteatoma, left ear (principal); H61.21 Impacted cerumen, right ear; I10 Essential (primary) hypertension; E78.00 Pure hypercholesterolemia, unspecified; E11.9 Type 2 diabetes mellitus without complications; Z79.82 Long term (current) use of aspirin; Z79.899 Other long term (current) drug therapy; Z79.84 Long term (current) use of oral hypoglycemic drugs
CPT/HCPCS: 69209; 99282; 99283

== ENCOUNTER 2023-02-24 13:08 | Outpatient (CLI) | payer MEDICARE | END 2023-02-24 13:09 | disposition home or self-care (01) | LOC: LAB.S 13:08 | PROVIDERS: ATTEND Family Medicine | DX: Z53.9 Procedure and treatment not carried out, unspecified reason (principal) ==

== ENCOUNTER 2023-02-25 11:11 | Outpatient (CLI) | payer MEDICARE ==
[2023-02-25 16:24] LABS: ALBUMIN 4.3 g/dL (3.2-5.5); ALBUMIN/GLOBULIN RATIO 1.7 (1.0-2.2); BILIRUBIN,TOTAL 0.4 mg/dL (0.2-1.0); CALCIUM 9.4 mg/dL (8.5-10.3); CREATININE 0.9 mg/dL (0.6-1.3); POTASSIUM 3.9 mmol/L (3.5-4.5); TOTAL PROTEIN 6.8 g/dL (6.4-8.9)
== END 2023-02-25 11:12 | disposition home or self-care (01) ==
LOC: LAB.S 11:11
PROVIDERS: ATTEND Family Medicine
DX: E83.52 Hypercalcemia (principal)
CPT/HCPCS: 36415; 80053; 82330; 83970

== ENCOUNTER 2023-03-16 14:11 | Outpatient (CLI) | payer MEDICARE ==
--- NOTE | 2023-03-17 11:44 | Mammography Report ---
BILATERAL DIGITAL SCREENING MAMMOGRAM 3D/2D: 03/16/2023 CLINICAL: Routine screening. Comparison is made to exams dated: 02/05/2022 mammogram, 07/31/2020 mammogram, 08/31/2018 mammogram, an d 04/20/2016 mammogram - [facility]. Both breasts are heterogeneously dense, which may obscure small masses (category c / 51-75% glandular tissue). There are benign calcifications in both breasts. No significant masses, calcifications, or other findings are seen in either breast. There has been no significant interval change. IMPRESSION: BENIGN There is no mammographic evidence of malignancy. A 1 year screening mammogram is recommended. Based on the Tyrer Cuzick model (a risk assessment model) the patients lifetime risk is 3.4% and her 10 year risk is 0.0%. According to the ACR, ACS, and NCCN guidelines, an annual breast MRI exam dick g with mammogram is recommended if the patients lifetime risk is 20% or greater. This exam was interpreted at Station ID: [id number]. NOTE: For mammograms, a report in lay terms will be sent to the patient. Approximately 15% of breast malignancies will not be visualized mammographically. In the management of a palpable breast mass, a negative mammogram must not discourage biopsy of a clinically suspicious lesion. Electronically Signed By: Calvin moreno/marcos:03/16/2023 17:39:18 letter sent: No_Letter ACR BI-RADS Category 2: Benign Finding(s) 3342F PARENCHYMAL PATTERN: (D) - The breast(s) demonstrate(s) heterogeneously dense fibroglandular sixto petty. BI-RADS CATEGORY: (2) - 2 Mammogram [id number] 1 year screening LATERALITY: (B)
== END 2023-03-16 14:12 | disposition home or self-care (01) ==
LOC: DI.S 14:11
PROVIDERS: ATTEND Family Medicine
DX: Z12.31 Encounter for screening mammogram for malignant neoplasm of breast (principal); R92.333 Mammographic heterogeneous density, bilateral breasts; D64.9 Anemia, unspecified; R53.83 Other fatigue; E11.9 Type 2 diabetes mellitus without complications; E03.9 Hypothyroidism, unspecified
CPT/HCPCS: 36415; 82626

== ENCOUNTER 2023-04-04 14:56 | Outpatient (CLI) | payer MEDICARE ==
--- NOTE | 2023-04-04 19:57 | Ultrasound Report ---
PROCEDURE: Head or Neck Soft Tissue INDICATIONS: THYROID NODULE TECHNIQUE: Real-time scanning was performed of the thyroid gland, with image documentation. COMPARISON: None FINDINGS: Right: Thyroid lobe measures 4.7 x 1.9 x 2 cm Left: Thyroid lobe measures 3.7 x 1 x 1.3 cm Isthmus: 3 mm thick. Nodule number: 1 Location: Right superior thyroid Size: 1 x 1 x 0.5 cm. Composition: Predominantly solid. Echogenicity: Hypoechoic. Shape: wider than tall (0 points). Margins: Smooth (0 points). Echogenic foci: None (0 points). Total points: 4 ACR TI-RADS category: 4 Nodule number: 2 Location: Right mid thyroid Size: 1.5 x 1.8 x 1.3 cm. Composition: Predominately solid. Echogenicity: Isoechoic. Shape: wider than tall (0 points). Margins: Smooth (0 points). Echogenic foci: None (0 points). Total points: 3 ACR TI-RADS category: 3 Nodule number: 3 Location: Right inferior thyroid Size: 0.8 x 0.9 x 1 cm. Composition: Predominantly cystic. Echogenicity: Isoechoic. Shape: wider than tall (0 points). Margins: Smooth (0 points). Echogenic foci: None (0 points). Total points: 1 ACR TI-RADS category: 2 Nodule number: 4 Location: Left inferior thyroid Size: 0.3 x 0.3 x 0.3 cm. Composition: Predominately cystic. Echogenicity: Anechoic. Shape: wider than tall (0 points). Margins: Smooth (0 points). Echogenic foci: None (0 points). Total points: 0 ACR TI-RADS category: 1 IMPRESSION: Bilateral thyroid nodules are seen. By published criteria, a follow-up ultrasound in one year is recommended for the 1.5 cm mid right thy roid nodule above. ACR TI-RADS definitions and recommendations: TI-RADS 1 (benign): 0 points. FNA not needed. TI-RADS 2 (not suspicious): 2 points. FNA not needed. TI-RADS 3 (mildly suspicious): 3 points. "FNA if 2.5 cm or larger, follow up if 1.5 cm or larger (at 1, 3, and 5 years). TI-RADS 4 (moderately suspicious): 4-6 points. "FNA if 1.5 cm or larger, follow up if 1 cm or larger (at 1, 2, 3, and 5 years). TI-RADS 5 (highly suspicious): 7 points or more. "FNA if 1 cm or larger, follow up if 0.5 cm or larger (every year for 5 years). Reviewed by: Kiran Gonzales MD on 04/04/2023 6:56 PM [place] Approved by: Kiran Gonzales MD on 04/04/2023 6:56 PM [place] Station ID: [id number]
== END 2023-04-04 14:57 | disposition home or self-care (01) ==
LOC: DI 14:56
PROVIDERS: ATTEND Registered Nurse
DX: E04.2 Nontoxic multinodular goiter (principal)

== ENCOUNTER 2023-06-18 10:41 | Outpatient (CLI) | payer MEDICARE ==
[2023-06-18 10:57] LABS: BASOPHILS # (AUTO) 0.1 10^3/uL (0.0-0.1); BASOPHILS % (AUTO) 1.8 %; EOSINOPHILS # (AUTO) 0.2 10^3/uL (0.0-0.7); EOSINOPHILS % (AUTO) 2.6 %; HCT - HEMATOCRIT 39.5 % (37.0-47.0); HGB - HEMOGLOBIN 12.6 g/dL (12.0-16.0); LYMPHOCYTES # (AUTO) 1.6 10^3/uL (1.5-3.5); LYMPHOCYTES % (AUTO) 21.7 %; MEAN CORPUSCULAR HEMOGLOBIN 27.3 pg (27.0-31.0); MEAN CORPUSCULAR HGB CONC 31.9 g/dL (32.0-36.0); MEAN CORPUSCULAR VOLUME 85.5 fL (81.0-99.0); MEAN PLATELET VOLUME 9.7 fL (7.9-10.8); MONOCYTES # (AUTO) 0.7 10^3/uL (0.0-1.0); MONOCYTES % (AUTO) 10.2 %; NEUTROPHILS # (AUTO) 4.5 10^3/uL (1.5-6.6); NEUTROPHILS % (AUTO) 63.3 %; PLT - PLATELET COUNT 393 10^3/uL (130-450); RED BLOOD COUNT 4.62 10^6/uL (4.20-5.40); RED CELL DISTRIBUTION WIDTH 14.2 % (12.0-15.0); WHITE BLOOD COUNT 7.2 x10^3/uL (4.8-10.8)
[2023-06-18 11:14] LABS: ALBUMIN 4.4 g/dL (3.2-5.5); ALBUMIN/GLOBULIN RATIO 1.5 (1.0-2.2); ALKALINE PHOSPHATASE 63 IU/L (42-121); ALT ALANINE AMINOTRANSFERASE 17 IU/L (10-60); AST ASPARTATE AMINOTRANSFERASE 17 IU/L (10-42); BILIRUBIN,TOTAL 0.4 mg/dL (0.2-1.0); BUN - BLOOD UREA NITROGEN 29 mg/dL (6-20); CALCIUM 9.7 mg/dL (8.5-10.3); CARBON DIOXIDE - CO2 24 mmol/L (21-32); CHLORIDE 104 mmol/L (101-111); CHOL/HDL RATIO 4.7 (<4.4); CHOLESTEROL 236 mg/dL; CREATININE 0.9 mg/dL (0.6-1.3); CRP HIGH SENSITIVITY 7.65 mg/L; GFR - MDRD 60 (>89); GLUCOSE 172 mg/dL (74-104); HDL CHOLESTEROL 50 mg/dL; LDL CHOLESTEROL,CALCULATED 136 mg/dL; LDL/HDL RATIO 2.7 (<4.4); POTASSIUM 4.2 mmol/L (3.5-4.5); SODIUM 138 mmol/L (135-145); TOTAL PROTEIN 7.4 g/dL (6.4-8.9); TRIGLYCERIDES 250 mg/dL (48-352); VLDL CHOLESTEROL 50 mg/dL
[2023-06-18 11:25] LABS: THYROID STIMULATING HORMONE 0.21 uIU/mL (0.34-5.60)
[2023-06-18 11:33] LABS: FERRITIN 8.4 ng/mL (11.0-306.8)
[2023-06-18 20:19] LABS: ESTIMATED AVERAGE GLUCOSE 140 mg/dL (70-100); HEMOGLOBIN A1c% 6.5 % (4.27-6.07)
== END 2023-06-18 10:42 | disposition home or self-care (01) ==
LOC: LAB 10:41
PROVIDERS: ATTEND Family Medicine
DX: E78.5 Hyperlipidemia, unspecified (principal); R59.0 Localized enlarged lymph nodes; R53.83 Other fatigue; E03.9 Hypothyroidism, unspecified; D64.9 Anemia, unspecified; E11.9 Type 2 diabetes mellitus without complications
CPT/HCPCS: 36415; 80053; 80061; 82626; 82728; 83036; 83090; 83721; 84439; 84443; 84480; 84481; 85025; 86141

== ENCOUNTER 2023-10-22 09:17 | Outpatient (CLI) | payer MEDICARE ==
[2023-10-22 15:25] LABS: BASOPHILS # (AUTO) 0.1 10^3/uL (0.0-0.1); EOSINOPHILS # (AUTO) 0.3 10^3/uL (0.0-0.7); EOSINOPHILS % (AUTO) 4.8 %; HGB - HEMOGLOBIN 9.8 g/dL (12.0-16.0); LYMPHOCYTES # (AUTO) 1.5 10^3/uL (1.5-3.5); LYMPHOCYTES % (AUTO) 25.7 %; MEAN CORPUSCULAR HEMOGLOBIN 26.3 pg (27.0-31.0); MEAN CORPUSCULAR HGB CONC 30.6 g/dL (32.0-36.0); MONOCYTES # (AUTO) 0.7 10^3/uL (0.0-1.0); MONOCYTES % (AUTO) 11.7 %; NEUTROPHILS # (AUTO) 3.3 10^3/uL (1.5-6.6); NEUTROPHILS % (AUTO) 56.3 %; PLT - PLATELET COUNT 342 10^3/uL (130-450); RED BLOOD COUNT 3.72 10^6/uL (4.20-5.40); WHITE BLOOD COUNT 5.8 x10^3/uL (4.8-10.8)
[2023-10-22 15:58] LABS: % IRON SATURATION 4 % (20-50); ALBUMIN 4.2 g/dL (3.2-5.5); ALBUMIN/GLOBULIN RATIO 1.9 (1.0-2.2); ALKALINE PHOSPHATASE 47 IU/L (42-121); ALT ALANINE AMINOTRANSFERASE 13 IU/L (10-60); AST ASPARTATE AMINOTRANSFERASE 14 IU/L (10-42); BILIRUBIN,TOTAL 0.4 mg/dL (0.2-1.0); BUN - BLOOD UREA NITROGEN 27 mg/dL (6-20); CARBON DIOXIDE - CO2 26 mmol/L (21-32); CHLORIDE 102 mmol/L (101-111); CHOL/HDL RATIO 4.4 (<4.4); CHOLESTEROL 175 mg/dL; CREATININE 0.9 mg/dL (0.6-1.3); CRP HIGH SENSITIVITY 12.62 mg/L; GFR - MDRD 60 (>89); GLUCOSE 170 mg/dL (74-104); HDL CHOLESTEROL 40 mg/dL; IRON 22 ug/dL (50-212); LDL CHOLESTEROL,CALCULATED 86 mg/dL; LDL/HDL RATIO 2.2 (<4.4); POTASSIUM 3.7 mmol/L (3.5-4.5); SODIUM 137 mmol/L (135-145); TOTAL IRON BINDING CAPACITY 490 ug/dL (250-450); TOTAL PROTEIN 6.4 g/dL (6.4-8.9); TRANSFERRIN 350 mg/dL (203-362); TRIGLYCERIDES 245 mg/dL (48-352); VLDL CHOLESTEROL 49 mg/dL
[2023-10-22 16:12] LABS: FERRITIN 13.4 ng/mL (11.0-306.8)
[2023-10-22 20:24] LABS: ESTIMATED AVERAGE GLUCOSE 148 mg/dL (70-100); HEMOGLOBIN A1c% 6.8 % (4.27-6.07)
== END 2023-10-22 09:18 | disposition home or self-care (01) ==
LOC: LAB.S 09:17
PROVIDERS: ATTEND Family Medicine
DX: D64.9 Anemia, unspecified (principal); E11.9 Type 2 diabetes mellitus without complications; R53.83 Other fatigue; E78.5 Hyperlipidemia, unspecified; I10 Essential (primary) hypertension; E03.9 Hypothyroidism, unspecified
CPT/HCPCS: 36415; 80053; 80061; 82306; 82626; 82728; 83036; 83090; 83525; 83540; 83721; 84439; 84443; 84466; 84480; 84481; 84482; 85025; 86141